=== PATIENT | female | born 1940 | race Caucasian/White ===

== ENCOUNTER 2017-02-05 13:17 | Observation (INO) | payer MEDICARE, BC ==
--- NOTE | 2017-02-05 16:04 | EDM.PDOC ---
ED HPI GENERAL MEDICAL PROBLEM - General Chief Complaint: Abdominal Pain Stated Complaint: PAIN UNDER RT RIB CAGE Time Seen by Provider: 02/05/17 14:30 Source of Information: Reports: Patient, Family () - History of Present Illness INITIAL COMMENTS - FREE TEXT/NARRATIVE: Taylor is a pleasant 76yo female who presents to ED ambulatory with her for complaints of RUQ abdominal pain "up under my rib" for around 2 weeks, worsening. Pain is worse with lying flat and wakes her up at night. She has not slept well now for the past 4-5 days. She denies F/C/S, being SOB, no cough, wheezing. She denies complaints of GERD/heartburn, n/v/d, moves her bowels regularly twice daily without changes in her stool. She has had cholecystectomy , appendectomy and hysterectomy with oopherectomty. She later reports that around one week ago she coughed up what she thought was blood tinged sputum but her sinuses have also felt dry. She had air travel to [place] a few weeks ago "but it was only a 45 minute flight". No swelling to LE. No personal or family hx of VTE. She is active, ambulatory and exercises, walks 2 miles per day; no increased pain, SOB, RUQ pain with ambulation recently. PMH significant for RA on MTX x 10+ years. Onset: Gradual Duration: Week(s): (1-2) Location: Reports: Abdomen (RUQ "under ribs") Quality: Reports: Sharp (with movements), Other (pressure when she lays flat in bed and + CVAT when patted her back to right flank last night.) Right Upper Abdomen Pain Score (Numeric/FACES): 0 - Related Data Allergies Allergy/AdvReac Type Severity Reaction Status Date / Time adhesive Allergy Rash Verified 02/05/17 18:28 cortisone Allergy Rash Verified 02/05/17 18:28 fluconazole [From Diflucan] Allergy Rash Verified 02/05/17 18:28 acetaminophen [From Tylenol] AdvReac Liver Verified 02/05/17 18:28 Problems Home Meds: Home Meds Estradiol [Estrace 0.01% Vaginal Crm] 1 dose VAG ASDIRECTED 04/22/14 [History] Fluticasone Propionate [Flonase] 1 sprays LEÓN DAILY 03/03/15 [History] Methotrexate 25 mg PO WEEKLY 04/22/14 [History] Pravastatin [Pravachol] 10 mg PO BEDTIME 04/22/14 [History] Aspirin [Halfprin] 81 mg PO DAILY 02/05/17 [History] Calcium Carb & Citrate/Vit D3 [Calcium + D3 ER Tablet] 1 tab PO BID 02/05/17 [ History] Metradinadole 1 applic TOP BID 02/05/17 [History] Multivitamin [Multivitamins] 1 cap PO DAILY 02/05/17 [History] Past Medical History HEENT History: Reports: Other (See Below) Other HEENT History: seasonal allergies Cardiovascular History: Reports: High Cholesterol, CA, Syncope Other Cardiovascular History: Ekg showed CA and pt was unaware Musculoskeletal History: Reports: Osteoporosis - Infectious Disease History Infectious Disease History: Reports: Chicken Pox, Shingles - Past Surgical History HEENT Surgical History: Reports: Adenoidectomy, Tonsillectomy Female Surgical History: Reports: Hysterectomy Musculoskeletal Surgical History: Reports: Other (See Below) Other Musculoskeletal Surgeries/Procedures:: L3-4-5 back fusion Social & Family History - Tobacco Use Smoking Status *Q: Never Smoker Second Hand Smoke Exposure: No - Caffeine Use Caffeine Use: Reports: Coffee, Tea - Alcohol Use Days Per Week of Alcohol Use: 0 Number of Drinks Per Day: 0 Total Drinks Per Week: 0 - Recreational Drug Use Recreational Drug Use: No Drug Use in Last 12 Months: No ED ROS GENERAL - Review of Systems Review Of Systems: See Below Constitutional: Reports: No Symptoms. Denies: Fever, Chills, Weakness HEENT: Reports: No Symptoms Respiratory: Reports: Cough, Hemoptysis (? of hemoptysis 1-2 weeks ago on one occasion) Cardiovascular: Reports: No Symptoms. Denies: Chest Pain, Dyspnea on Exertion, Lightheadedness, Orthopnea, Palpitations GI/Abdominal: Reports: Abdominal Pain (RUQ abdominal pain "pain under my rib"). Denies: Black Stool, Bloody Stool, Constipation, Diarrhea, Decreased Appetite , Hematochezia, Melena, Nausea : Reports: No Symptoms Musculoskeletal: Reports: Other (Hx of RA) Neurological: Reports: No Symptoms Hematologic/Lymphatic: Reports: No Symptoms, Other (last labs for RA/MTX monitoring were normal in October) ED EXAM, GI/ABD - Physical Exam Exam: See Below Exam Limited By: No Limitations General Appearance: Alert, WD/WN, No Apparent Distress Eyes: Bilateral: EOMI Ears: Normal External Exam, Hearing Grossly Normal Nose: Normal Inspection Throat/Mouth: Normal Inspection, Normal Lips, Normal Teeth, Normal Voice, No Airway Compromise Head: Atraumatic, Normocephalic Neck: Normal Inspection, Supple Respiratory/Chest: No Respiratory Distress, Lungs Clear, Normal Breath Sounds Cardiovascular: Normal Peripheral Pulses, Regular Rate, Rhythm, No Edema, No Murmur GI/Abdominal Exam: Normal Bowel Sounds, Soft, Non-Tender, No Organomegaly, Other (no pain with palp of RUQ or under rt rib cage). No: Guarding, Rigid, Rebound (Female) Exam: Deferred Rectal (Female) Exam: Deferred Back Exam: Normal Inspection, CVA Tenderness (R) (definite CVAT to right flank) . No: CVA Tenderness (L) Extremities: Normal Inspection, Non-Tender, No Pedal Edema, Normal Capillary Refill Neurological: Alert, Oriented, Normal Cognition, No Motor/Sensory Deficits Psychiatric: Normal Affect, Normal Mood Skin Exam: Warm, Dry, Intact Course - Vital Signs Last Recorded V/S: Last Vital Signs Temp 97.6 F 02/05/17 13:51 Pulse 77 02/05/17 13:51 Resp 15 02/05/17 13:51 BP 134/70 02/05/17 13:51 Pulse Ox 98 02/05/17 13:51 - Orders/Labs/Meds Orders: Active Orders 24 hr Category Date Time Status Sodium Chloride 0.9% [Normal Saline] 100 ml Med 02/05/17 16:45 Active IV ASDIRECTED Sodium Chloride 0.9% [Saline Flush] Med 02/05/17 16:43 Active 10 ml FLUSH ONETIME PRN Medication Orders Sodium Chloride (Normal Saline) 100 mls @ 65 mls/hr IV ASDIRECTED BRAULIO Last Admin: 02/05/17 17:35 Dose: 65 mls/hr Sodium Chloride (Saline Flush) 10 ml FLUSH ONETIME PRN PRN Reason: IV FLUSH Last Admin: 02/05/17 17:35 Dose: 10 ml Labs: Laboratory Tests 02/05/17 02/05/17 02/05/17 Range/Units 15:03 15:30 15:30 WBC 8.40 (3.98-10.04) K/mm3 RBC 4.38 (3.98-5.22) M/mm3 Hgb 13.9 (11.2-15.7) gm/L Hct 40.9 (34.1-44.9) % MCV 93.4 (79.4-94.8) fl MCH 31.7 (25.6-32.2) pg MCHC 34.0 (32.2-35.5) g/dl RDW Std Deviation 44.1 (36.4-46.3) fL Plt Count 208 (182-369) K/mm3 MPV 10.8 (9.4-12.3) fl Neut % (Auto) 65.8 (34.0-71.1) % Lymph % (Auto) 23.5 (19.3-51.7) % Smith % (Auto) 9.4 (4.7-12.5) % Eos % (Auto) 0.8 (0.7-5.8) Baso % (Auto) 0.5 (0.1-1.2) % Neut # (Auto) 5.53 (1.56-6.13) K/mm3 Lymph # (Auto) 1.97 (1.18-3.74) K/mm3 Smith # (Auto) 0.79 H (0.24-0.36) K/mm3 Eos # (Auto) 0.07 (0.04-0.36) K/mm3 Baso # (Auto) 0.04 (0.01-0.08) K/mm3 D-Dimer, Quantitative 2.67 H (0.19-0.59) mg/L Sodium (136-145) mEq/L Potassium (3.5-5.1) mEq/L Chloride (98-107) mEq/L Carbon Dioxide (21-32) mEq/L Anion Gap (5-15) BUN (7-18) mg/dL Creatinine (0.55-1.02) mg/dL Est Cr Clr Drug Dosing mL/min Estimated GFR (MDRD) (>60) mL/min BUN/Creatinine Ratio (14-18) Glucose (83-115) mg/dL Calcium (8.5-10.1) mg/dL Total Bilirubin (0.2-1.0) mg/dL AST (15-37) U/L ALT (14-59) U/L Alkaline Phosphatase (46-116) U/L Total Protein (6.4-8.2) g/dl Albumin (3.4-5.0) g/dl Globulin gm/dL Albumin/Globulin Ratio (1-2) Lipase (73-393) U/L Urine Color Light yellow (Yellow) Urine Appearance Clear (Clear) Urine pH 6.5 (5.0-8.0) Ur Specific [place] 1.015 (1.005-1.030) Urine Protein Negative (Negative) Urine Glucose (UA) Negative (Negative) Urine Ketones Negative (Negative) Urine Occult Blood Negative (Negative) Urine Nitrite Negative (Negative) Urine Bilirubin Negative (Negative) Urine Urobilinogen 0.2 (0.2-1.0) Ur Leukocyte Esterase Negative (Negative) Urine RBC Not seen (0-5) /hpf Urine WBC 0-5 (0-5) /hpf Ur Epithelial Cells 0-5 (0-5) /hpf Urine Bacteria Few (FEW) /hpf Urine Mucus Not seen (FEW) /hpf 02/05/17 Range/Units 15:30 WBC (3.98-10.04) K/mm3 RBC (3.98-5.22) M/mm3 Hgb (11.2-15.7) gm/L Hct (34.1-44.9) % MCV (79.4-94.8) fl MCH (25.6-32.2) pg MCHC (32.2-35.5) g/dl RDW Std Deviation (36.4-46.3) fL Plt Count (182-369) K/mm3 MPV (9.4-12.3) fl Neut % (Auto) (34.0-71.1) % Lymph % (Auto) (19.3-51.7) % Smith % (Auto) (4.7-12.5) % Eos % (Auto) (0.7-5.8) Baso % (Auto) (0.1-1.2) % Neut # (Auto) (1.56-6.13) K/mm3 Lymph # (Auto) (1.18-3.74) K/mm3 Smith # (Auto) (0.24-0.36) K/mm3 Eos # (Auto) (0.04-0.36) K/mm3 Baso # (Auto) (0.01-0.08) K/mm3 D-Dimer, Quantitative (0.19-0.59) mg/L Sodium 141 (136-145) mEq/L Potassium 3.8 (3.5-5.1) mEq/L Chloride 106 (98-107) mEq/L Carbon Dioxide 26 (21-32) mEq/L Anion Gap 12.8 (5-15) BUN 10 (7-18) mg/dL Creatinine 0.6 (0.55-1.02) mg/dL Est Cr Clr Drug Dosing 79.52 mL/min Estimated GFR (MDRD) > 60 (>60) mL/min BUN/Creatinine Ratio 16.7 (14-18) Glucose 108 (83-115) mg/dL Calcium 8.9 (8.5-10.1) mg/dL Total Bilirubin 1.0 (0.2-1.0) mg/dL AST 21 (15-37) U/L ALT 20 (14-59) U/L Alkaline Phosphatase 53 (46-116) U/L Total Protein 6.7 (6.4-8.2) g/dl Albumin 3.4 (3.4-5.0) g/dl Globulin 3.3 gm/dL Albumin/Globulin Ratio 1.0 (1-2) Lipase 240 (73-393) U/L Urine Color (Yellow) Urine Appearance (Clear) Urine pH (5.0-8.0) Ur Specific [place] (1.005-1.030) Urine Protein (Negative) Urine Glucose (UA) (Negative) Urine Ketones (Negative) Urine Occult Blood (Negative) Urine Nitrite (Negative) Urine Bilirubin (Negative) Urine Urobilinogen (0.2-1.0) Ur Leukocyte Esterase (Negative) Urine RBC (0-5) /hpf Urine WBC (0-5) /hpf Ur Epithelial Cells (0-5) /hpf Urine Bacteria (FEW) /hpf Urine Mucus (FEW) /hpf Meds: Medications Generic Name Dose Route Start Last Admin Trade Name Freq PRN Reason Stop Dose Admin Sodium Chloride 100 mls @ 65 mls/hr 02/05/17 16:45 02/05/17 17:35 Normal Saline IV 65 mls/hr ASDIRECTED BRAULIO Administration Sodium Chloride 10 ml 02/05/17 16:43 02/05/17 17:35 Saline Flush FLUSH 10 ml ONETIME PRN Administration IV FLUSH Discontinued Medications Generic Name Dose Route Start Last Admin Trade Name Donq PRN Reason Stop Dose Admin Diatrizoate Meglum/Diatrizoate Sod 90 ml 02/05/17 16:43 02/05/17 17:35 Gastrografin 37% PO 02/05/17 16:44 90 ml ONETIME ONE Administration Enoxaparin Sodium 60 mg 02/05/17 19:01 02/05/17 19:11 Lovenox SUBCUT 02/05/17 19:02 60 mg ONETIME ONE Administration Iopamidol 100 ml 02/05/17 16:43 02/05/17 17:35 Isovue-370 (76%) IVPUSH 02/05/17 16:44 100 ml ONETIME ONE Administration - Radiology Interpretation Free Text/Narrative:: Labs with normal CBC, CMP. D-dimer is elevated at 2.63 CTA of chest is obtained with elevation of d.dimer showing rt sided pulmonoary emboli--see reports CT of abd/pelvis with contrast is unremarkable for acute findings. Case reviewed with Dr. Banegas; recommends admission despite hemodynamic stability. Call placed to Dr. García who agrees to accept patient to Observation status. Lovenox 60mg given for anticoagulation. Reviewed all above findings and recommendations with patient and who agree to admission to observation as above. Departure - Departure Time of Disposition: 20:00 Disposition: Admitted As Inpatient 68 Condition: Good Clinical Impression: Pulmonary embolism on right - Discharge Information Referrals: Chanel Ryan PA [Primary Care Provider] - Forms: ED Department Discharge - My Orders Last 24 Hours: My Active Orders 02/05/17 16:43 Sodium Chloride 0.9% [Saline Flush] 10 ml FLUSH ONETIME PRN 02/05/17 16:45 Sodium Chloride 0.9% [Normal Saline] 100 ml IV ASDIRECTED - Assessment/Plan Last 24 Hours: My Active Orders 02/05/17 16:43 Sodium Chloride 0.9% [Saline Flush] 10 ml FLUSH ONETIME PRN 02/05/17 16:45 Sodium Chloride 0.9% [Normal Saline] 100 ml IV ASDIRECTED
[2017-02-05] MEDS ORDERED: Sodium Chloride 0.9% 10 ML Syringe FLUSH PRN (16:43)
[2017-02-05] MEDS ORDERED: Iopamidol 755 Mg/ML 100 ML Bottle IVPUSH ONE (16:43)
[2017-02-05] MEDS ORDERED: Diatrizoate Meglumine/Diatrizoate Sodium 37% 120 ML Bottle PO ONE (16:43)
[2017-02-05] MEDS ORDERED: Sodium Chloride 0.9% 100 ML IV SCH (16:45)
--- NOTE | 2017-02-05 18:05 | CT ---
CT chest Technique: Multiple axial sections through the chest were obtained. Intravenous contrast was utilized. Study has been performed as a pulmonary angiogram protocol. Findings: Pulmonary emboli are seen within the right lower lobe segmental and subsegmental branches. Smaller pulmonary emboli are seen within a segmental branch within the right upper lung. No other pulmonary emboli are appreciated. No evidence of right ventricular strain. Mediastinum and hilar regions show no adenopathy or mass. No pericardial thickening is seen. Small right sided pleural effusion is seen. Subpleural nodular density is within the right middle lobe measuring 2.1 cm. Slight dependent atelectasis is seen posteriorly within both lung bases. Bone window settings appear within normal limits for the patient's age. Impression: 1. Pulmonary emboli within the right lower lobe as well as small pulmonary emboli within the right upper lung. 2. Small right sided pleural effusion. 3. Subpleural nodular density within right middle lobe measuring 2.1 cm. Recommend follow-up noncontrast chest CT in 6 months to further evaluate this nodule. This follow-up study would occur in July,. Diagnostic code #5 and #9
--- NOTE | 2017-02-05 18:17 | CT ---
CT abdomen and pelvis Technique: Subpleural nodular density again seen within the right middle lobe. Small right basilar pleural effusion is seen. Liver shows no focal parenchymal abnormality. Surgical clips are seen from prior cholecystectomy. Spleen appears within normal limits. Adrenal glands show no nodule. Kidneys show symmetric contrast enhancement without hydronephrosis or mass. Small scar is noted within the left kidney. Pancreas shows no discrete abnormality. Surgical clips are seen from prior cholecystectomy. Aorta shows no aneurysmal dilatation with atherosclerotic calcification. Calcified injection granulomas are noted within both buttocks. No pelvic mass or adenopathy is seen. No free fluid is identified. Delayed images shows contrast within the distal ureters and within the bladder. Appendix not visualized with certainty. Bone window settings were reviewed which shows previous lumbar spine surgery. Impression: 1. Incidental findings as noted above. Nothing acute is appreciated on CT study of the abdomen and pelvis. Diagnostic code #2
[2017-02-05] MEDS ORDERED: Enoxaparin 60 MG/0.6 ML Syringe SUBCUT ONE (19:01)
--- NOTE | 2017-02-05 19:50 | PCM.HP ---
H&P History of Present Illness - General Date of Service: 02/05/17 Admit Problem/Dx: PE Source of Information: Patient, Old Records, Provider, RN Notes Reviewed History Limitations: Reports: No Limitations - History of Present Illness Initial Comments - Free Text/Narative: This is a 76 yo elderly white female who looks younger than her stated age with past medical hx/o vaginal dryness, seasonal allergic rhinitis, hyperlipidemia, history of NV, and osteoporosis who presents to the emergency department with complains of worsening right upper quadrant abdominal pain under her rib that started 2 weeks ago. Her pain is aggravated with laying flat and wakes her up at night. She denies any associated symptoms. She reports no recent surgery or prolonged travel. She has a very active lifestyle with routine exercise. She denies any history of blood clot. He is not an active smoker. No history of malignancy. She is not bed-bound and denies any family history of hypercoagulable state. Patient carries a history of rheumatoid arthritis on methotrexate for over 10 years now. Her initial workup in the emergency department shows an unremarkable CBC and chemistry. Her UA is negative for UTI. Her d-dimer is elevated at 2.67. Abdominal/pelvic CT scan report reads no acute issues appreciated. Her pulmonary angiogram report reads pulmonary emboli within the right lower lobe as well as small pulmonary emboli within the right upper lung. Small right- sided pleural effusion. Subpleural nodular density within the right middle lobe measuring 2.1 cm. Patient is being admitted for medical management and all pulmonary embolism that is likely unprovoked in nature. She is full code. Right Upper Abdomen Pain Score (Numeric/FACES): 0 - Related Data Allergies/Adverse Reactions: Allergies Allergy/AdvReac Type Severity Reaction Status Date / Time adhesive Allergy Rash Verified 02/05/17 18:28 cortisone Allergy Rash Verified 02/05/17 18:28 fluconazole [From Diflucan] Allergy Rash Verified 02/05/17 18:28 acetaminophen [From Tylenol] AdvReac Liver Verified 02/05/17 18:28 Problems Home Medications: Home Meds Estradiol [Estrace 0.01% Vaginal Crm] 1 dose VAG ASDIRECTED 04/22/14 [History] Fluticasone Propionate [Flonase] 1 sprays LEÓN DAILY 04/22/14 [History] Methotrexate 25 mg PO WEEKLY 03/03/15 [History] Pravastatin [Pravachol] 10 mg PO BEDTIME 04/22/14 [History] Aspirin [Halfprin] 81 mg PO DAILY 02/05/17 [History] Calcium Carb & Citrate/Vit D3 [Calcium + D3 ER Tablet] 1 tab PO BID 02/05/17 [ History] Metradinadole 1 applic TOP BID 02/05/17 [History] Multivitamin [Multivitamins] 1 cap PO DAILY 02/05/17 [History] Past Medical History HEENT History: Reports: Other (See Below) Other HEENT History: seasonal allergies Cardiovascular History: Reports: High Cholesterol, NV, Syncope Other Cardiovascular History: Ekg showed NV and pt was unaware Musculoskeletal History: Reports: Osteoporosis - Infectious Disease History Infectious Disease History: Reports: Chicken Pox, Shingles - Past Surgical History HEENT Surgical History: Reports: Adenoidectomy, Tonsillectomy Female Surgical History: Reports: Hysterectomy Musculoskeletal Surgical History: Reports: Other (See Below) Other Musculoskeletal Surgeries/Procedures:: L3-4-5 back fusion Social & Family History - Tobacco Use Smoking Status *Q: Never Smoker Second Hand Smoke Exposure: No - Caffeine Use Caffeine Use: Reports: Coffee, Tea - Alcohol Use Days Per Week of Alcohol Use: 0 Number of Drinks Per Day: 0 Total Drinks Per Week: 0 - Recreational Drug Use Recreational Drug Use: No Drug Use in Last 12 Months: No H&P Review of Systems - Review of Systems: Review Of Systems: See Below General: Denies: Fever, Chills, Malaise, Weakness, Fatigue HEENT: Reports: No Symptoms Pulmonary: Reports: Cough, Hemoptysis. Denies: Shortness of Breath Gastrointestinal: Reports: Abdominal Pain. Denies: Nausea, Vomiting Genitourinary: Reports: No Symptoms Musculoskeletal: Reports: No Symptoms Skin: Denies: Cyanosis, Bruising, Rash, Erythema Psychiatric: Reports: No Symptoms Neurological: Denies: Confusion, Difficulty Walking, Gait Disturbance Hematologic/Lymphatic: Reports: No Symptoms. Denies: Easy Bleeding, Easy Bruising Immunologic: Reports: No Symptoms, Anaphylaxis Exam - Exam Exam: See Below - Vital Signs Vital Signs: Last Vital Signs Temp 36.4 C 02/05/17 13:51 Pulse 77 02/05/17 13:51 Resp 15 02/05/17 13:51 BP 134/70 02/05/17 13:51 Pulse Ox 98 02/05/17 13:51 Weight: 61.235 kg - Exam General: Alert, Oriented, Cooperative, Mild Distress HEENT: Conjunctiva Clear, EOMI, Hearing Intact, Mucosa Moist & Dunn, Normal Nasal Septum, Posterior Pharynx Clear, Pupils Equal, Pupils Reactive, TMs Clear Neck: Supple, Trachea Midline Lungs: Clear to Auscultation, Normal Respiratory Effort Cardiovascular: Regular Rate, Regular Rhythm GI/Abdominal Exam: Normal Bowel Sounds, Soft, Non-Tender, No Organomegaly, No Distention, No Abnormal Bruit, No Mass (Female) Exam: Deferred Rectal (Female) Exam: Deferred Back Exam: Normal Inspection, Decreased Range of Motion Extremities: Normal Inspection, Normal Range of Motion, Non-Tender, No Pedal Edema, Normal Capillary Refill Peripheral Pulses: 2+: Posterior Tibial (L), Posterior Tibial (R), Dorsalis Pedis (L), Dorsalis Pedis (R) Skin: Warm, Dry, Intact Neuro Extensive - Mental Status: Oriented x3, Normal Cognition, Memory Intact Neuro Extensive - Motor, Sensory, Reflexes: CN II-XII Intact, Normal Gait Psychiatric: Alert, Normal Affect, Normal Mood - Patient Data Lab Results Last 24 hrs: Laboratory Results - last 24 hr 02/05/17 02/05/17 02/05/17 Range/Units 15:03 15:30 15:30 WBC 8.40 (3.98-10.04) K/mm3 RBC 4.38 (3.98-5.22) M/mm3 Hgb 13.9 (11.2-15.7) gm/L Hct 40.9 (34.1-44.9) % MCV 93.4 (79.4-94.8) fl MCH 31.7 (25.6-32.2) pg MCHC 34.0 (32.2-35.5) g/dl RDW Std Deviation 44.1 (36.4-46.3) fL Plt Count 208 (182-369) K/mm3 MPV 10.8 (9.4-12.3) fl Neut % (Auto) 65.8 (34.0-71.1) % Lymph % (Auto) 23.5 (19.3-51.7) % Lyman % (Auto) 9.4 (4.7-12.5) % Eos % (Auto) 0.8 (0.7-5.8) Baso % (Auto) 0.5 (0.1-1.2) % Neut # (Auto) 5.53 (1.56-6.13) K/mm3 Lymph # (Auto) 1.97 (1.18-3.74) K/mm3 Lyman # (Auto) 0.79 H (0.24-0.36) K/mm3 Eos # (Auto) 0.07 (0.04-0.36) K/mm3 Baso # (Auto) 0.04 (0.01-0.08) K/mm3 D-Dimer, Quantitative 2.67 H (0.19-0.59) mg/L Sodium (136-145) mEq/L Potassium (3.5-5.1) mEq/L Chloride (98-107) mEq/L Carbon Dioxide (21-32) mEq/L Anion Gap (5-15) BUN (7-18) mg/dL Creatinine (0.55-1.02) mg/dL Est Cr Clr Drug Dosing mL/min Estimated GFR (MDRD) (>60) mL/min BUN/Creatinine Ratio (14-18) Glucose (83-115) mg/dL Calcium (8.5-10.1) mg/dL Total Bilirubin (0.2-1.0) mg/dL AST (15-37) U/L ALT (14-59) U/L Alkaline Phosphatase (46-116) U/L Total Protein (6.4-8.2) g/dl Albumin (3.4-5.0) g/dl Globulin gm/dL Albumin/Globulin Ratio (1-2) Lipase (73-393) U/L Urine Color Light yellow (Yellow) Urine Appearance Clear (Clear) Urine pH 6.5 (5.0-8.0) Ur Specific Ald[place] 1.015 (1.005-1.030) Urine Protein Negative (Negative) Urine Glucose (UA) Negative (Negative) Urine Ketones Negative (Negative) Urine Occult Blood Negative (Negative) Urine Nitrite Negative (Negative) Urine Bilirubin Negative (Negative) Urine Urobilinogen 0.2 (0.2-1.0) Ur Leukocyte Esterase Negative (Negative) Urine RBC Not seen (0-5) /hpf Urine WBC 0-5 (0-5) /hpf Ur Epithelial Cells 0-5 (0-5) /hpf Urine Bacteria Few (FEW) /hpf Urine Mucus Not seen (FEW) /hpf 02/05/17 Range/Units 15:30 WBC (3.98-10.04) K/mm3 RBC (3.98-5.22) M/mm3 Hgb (11.2-15.7) gm/L Hct (34.1-44.9) % MCV (79.4-94.8) fl MCH (25.6-32.2) pg MCHC (32.2-35.5) g/dl RDW Std Deviation (36.4-46.3) fL Plt Count (182-369) K/mm3 MPV (9.4-12.3) fl Neut % (Auto) (34.0-71.1) % Lymph % (Auto) (19.3-51.7) % Lyman % (Auto) (4.7-12.5) % Eos % (Auto) (0.7-5.8) Baso % (Auto) (0.1-1.2) % Neut # (Auto) (1.56-6.13) K/mm3 Lymph # (Auto) (1.18-3.74) K/mm3 Lyman # (Auto) (0.24-0.36) K/mm3 Eos # (Auto) (0.04-0.36) K/mm3 Baso # (Auto) (0.01-0.08) K/mm3 D-Dimer, Quantitative (0.19-0.59) mg/L Sodium 141 (136-145) mEq/L Potassium 3.8 (3.5-5.1) mEq/L Chloride 106 (98-107) mEq/L Carbon Dioxide 26 (21-32) mEq/L Anion Gap 12.8 (5-15) BUN 10 (7-18) mg/dL Creatinine 0.6 (0.55-1.02) mg/dL Est Cr Clr Drug Dosing 79.52 mL/min Estimated GFR (MDRD) > 60 (>60) mL/min BUN/Creatinine Ratio 16.7 (14-18) Glucose 108 (83-115) mg/dL Calcium 8.9 (8.5-10.1) mg/dL Total Bilirubin 1.0 (0.2-1.0) mg/dL AST 21 (15-37) U/L ALT 20 (14-59) U/L Alkaline Phosphatase 53 (46-116) U/L Total Protein 6.7 (6.4-8.2) g/dl Albumin 3.4 (3.4-5.0) g/dl Globulin 3.3 gm/dL Albumin/Globulin Ratio 1.0 (1-2) Lipase 240 (73-393) U/L Urine Color (Yellow) Urine Appearance (Clear) Urine pH (5.0-8.0) Ur Specific Alda (1.005-1.030) Urine Protein (Negative) Urine Glucose (UA) (Negative) Urine Ketones (Negative) Urine Occult Blood (Negative) Urine Nitrite (Negative) Urine Bilirubin (Negative) Urine Urobilinogen (0.2-1.0) Ur Leukocyte Esterase (Negative) Urine RBC (0-5) /hpf Urine WBC (0-5) /hpf Ur Epithelial Cells (0-5) /hpf Urine Bacteria (FEW) /hpf Urine Mucus (FEW) /hpf Result Diagrams: 02/05/17 15:30 02/05/17 15:30 *Q Meaningful Use (ADM) - VTE *Q VTE Criteria *Q: - Stroke *Q Stroke Criteria *Q: - AMI *Q AMI Criteria *Q: Problem List Initiated/Reviewed/Updated: Yes Orders Last 24hrs: Active Orders 24 hr Category Date Time Status CBC W/O DIFF,HEMOGRAM [HEME] DAILY Lab 02/05/17 19:15 Ordered Sodium Chloride 0.9% [Normal Saline] 100 ml Med 02/05/17 16:45 Active IV ASDIRECTED Sodium Chloride 0.9% [Saline Flush] Med 02/05/17 16:43 Active 10 ml FLUSH ONETIME PRN Medication Orders Sodium Chloride (Normal Saline) 100 mls @ 65 mls/hr IV ASDIRECTED BRAULIO Last Admin: 02/05/17 17:35 Dose: 65 mls/hr Sodium Chloride (Saline Flush) 10 ml FLUSH ONETIME PRN PRN Reason: IV FLUSH Last Admin: 02/05/17 17:35 Dose: 10 ml Assessment/Plan Comment:: Assessment/Plan: Acute: Pulmonary Embolism - Likely unprovoked - Risk Factor: Long Hx/o RA - No Hx/o Blood Clot, NO recent r=surgery, no prolonged travel - She is not an active smoker, NO active Malignancy, She is not obese and not bed bound - She is very active in lifestyle - Denies any family hx/o hyper-coagulable states - Already received Lovenox SubQ x1 in ED - She wants to be on DOACs instead of Warfarin - She agrees with Eliquis start at 10 mg po BID for & days then 5 mg po BID thereafter - PRN pain meds - Recommend hyper-coagulable work up after treatment Small Right Sided Effusion - 2/2 PE - Monitor - IS as directed 2.1 Centimeter Sub-pleureal Nodular Density Within RML - New finding on CT scan - Recommend follow up with Non-contrast Chest CT scan in 6 months for further eval - Defer to PCP Chronic: Vaginal Dryness NAKUL RA on MTX HLD Plan: Admit to OBS Routine AM Labs Resume Home Meds CM/SW for d/c planning Code Status:1 D/c in am if she remains stable
[2017-02-05] MEDS ORDERED: Promethazine 12.5 MG in Sodium Chloride 0.9% 50 ML IV PRN (20:23)
[2017-02-05] MEDS ORDERED: Ondansetron 4 MG/2 ML SDV IV PRN (20:23)
[2017-02-05] MEDS ORDERED: Bisacodyl 5 MG Tab PO PRN (20:23)
[2017-02-05] MEDS ORDERED: Acetaminophen 325 MG Tab PO PRN ×2 (20:23→21:34)
[2017-02-05] MEDS ORDERED: Polyethylene Glycol 3350 Powder 17 GM Packet PO PRN (20:23)
[2017-02-05] MEDS ORDERED: HYDROmorphone 0.5 MG/0.5 ML Syringe IVPUSH PRN (20:23)
[2017-02-05] MEDS ORDERED: LORazepam 2 MG/ML MDV IV PRN (20:23)
[2017-02-05] MEDS ORDERED: Temazepam 7.5 MG Cap PO PRN (20:23)
[2017-02-05] MEDS ORDERED: Docusate Sodium 100 MG Cap PO PRN (20:23)
[2017-02-05] MEDS ORDERED: Acetaminophen/HYDROcodone 325-5 MG Tab PO PRN ×2 (20:23→21:34)
[2017-02-05] MEDS ORDERED: Albuterol/Ipratropium 3.0-0.5 MG/3 ML Neb Soln NEB PRN (20:23)
[2017-02-05] MEDS ORDERED: Metoprolol Tartrate 5 MG/5 ML SDV IVPUSH PRN (20:29)
[2017-02-05] MEDS ORDERED: hydrALAZINE 20 MG/ML SDV IVPUSH PRN (20:29)
[2017-02-05] MEDS ORDERED: ESTRADIOL VAG SCH (20:30)
[2017-02-05] MEDS ORDERED: METHOTREXATE 25 MG PO SCH (20:30)
[2017-02-05] MEDS ORDERED: PRAVASTATIN 10 MG PO SCH ×2 (21:00)
[2017-02-05] MEDS ORDERED: [UNRECOGNIZED DRUG - OTHER] TOP SCH (21:00)
[2017-02-05] MEDS ORDERED: ESTRADIOL VAGINAL VAG SCH (21:00)
[2017-02-05] MEDS ORDERED: oxyCODONE 5 MG Tab PO PRN (23:20)
[2017-02-06] MEDS ORDERED: Apixaban 5 MG Tab PO SCH ×2 (07:00→09:00)
[2017-02-06] MEDS: METRONIDAZOLE TOP SCH ×2 (07:55→08:55)
--- NOTE | 2017-02-06 08:33 | PCM.DCSUM1 ---
Discharge Summary - Discharge Data Discharge Disposition: Home, Self-Care 01 Condition: Good - Discharge Plan Home Medications: Home Meds Estradiol [Estrace 0.01% Vaginal Crm] 1 dose VAG ASDIRECTED 04/22/14 [History] Fluticasone Propionate [Flonase] 1 sprays LEÓN DAILY 04/22/14 [History] Methotrexate 25 mg PO WEEKLY 04/22/14 [History] Pravastatin [Pravachol] 10 mg PO BEDTIME 04/22/14 [History] Aspirin [Halfprin] 81 mg PO DAILY 02/05/17 [History] Calcium Carb & Citrate/Vit D3 [Calcium + D3 ER Tablet] 1 tab PO BID 02/05/17 [ History] Metradinadole 1 applic TOP BID 02/05/17 [History] Multivitamin [Multivitamins] 1 cap PO DAILY 02/05/17 [History] Patient Handouts: Pulmonary Embolism, Apixaban oral tablets Forms: ED Department Discharge Referrals: Connor,GRAY Mccoy [Primary Care Provider] - (Follow-up with primary doctor for blood-thinner options if Eliquis is unaffordable.) - Patient Data Vitals - Most Recent: Last Vital Signs Temp 97.7 F 02/06/17 07:44 Pulse 77 02/06/17 07:44 Resp 18 02/06/17 07:44 BP 110/60 02/06/17 07:44 Pulse Ox 92 L 02/06/17 07:44 Weight - Most Recent: 135 lb 12.8 oz I&O - Last 24 hours: Intake & Output 02/05/17 02/06/17 02/06/17 22:59 06:59 14:59 Intake Total 800 Balance 800 Med Orders - Current: Current Medications Albuterol/Ipratropium (Duoneb 3.0-0.5 Mg/3 Ml) 3 ml NEB Q4H PRN PRN Reason: Shortness Of Breath/wheezing Apixaban (Eliquis) 10 mg PO BID BRAULIO Stop: 02/12/17 21:01 Apixaban (Eliquis) 5 mg PO BID BRAULIO Aspirin (Halfprin) 81 mg PO DAILY BRAULIO Bisacodyl (Dulcolax) 5 mg PO DAILY PRN PRN Reason: Constipation Docusate Sodium (Colace) 100 mg PO BID PRN PRN Reason: Constipation Flunisolide (Nasalide Nasal [place]) 0 ml LEÓN BID [facility] Hydralazine HCl (Apresoline) 20 mg IVPUSH Q4H PRN PRN Reason: Hypertension Hydromorphone HCl (Dilaudid) 0.25 mg IVPUSH Q2H PRN PRN Reason: Pain (severe 7-10) Last Admin: 02/05/17 22:55 Dose: 0.25 mg Promethazine HCl 12.5 mg/ (Sodium Chloride) 50.5 mls @ 100 mls/hr IV Q6H PRN PRN Reason: Nausea/Vomiting Lorazepam (Ativan) 1 mg IV Q6H PRN PRN Reason: Anxiety Magnesium Sulfate (Pharmacy To Dose - Magnesium Replacement) 1 dose .XX ASDIRECTED [facility] Metoprolol Tartrate (Lopressor) 5 mg IVPUSH Q4H PRN PRN Reason: Tachycardia Multivitamins (Thera) 1 each PO DAILY [facility] Non-Formulary Medication (Methotrexate [Methotrexate]) 25 mg PO WEEKLY [facility] Ondansetron HCl (Zofran) 4 mg IV Q6H PRN PRN Reason: Nausea/Vomiting Oxycodone HCl (Oxycodone) 5 mg PO Q4H PRN PRN Reason: Pain Last Admin: 02/06/17 03:41 Dose: 5 mg Ptom - Calcium Carb & Citrate W/Vitamin D 1 each PO BID [facility] Ptom - Estradiol (Vaginal Cream) 0 each VAG ASDIRECTED [facility] Ptom - Metronidazole (Topical) 0 each TOP BID [facility] Last Admin: 02/06/17 07:55 Dose: Not Given Pravastatin 10mg Tab (Own Med) 0 each PO BEDTIME BRAULIO Last Admin: 02/05/17 22:48 Dose: 1 each Polyethylene Glycol (Miralax) 17 gm PO DAILY PRN PRN Reason: Constipation Potassium Chloride (Pharmacy To Dose - Potassium Replacement) 1 dose .XX ASDIRECTED [facility] Senna/Docusate Sodium (Senna Plus) 1 tab PO BID PRN PRN Reason: Constipation Sodium Chloride (Saline Flush) 10 ml FLUSH ONETIME PRN PRN Reason: IV FLUSH Last Admin: 02/05/17 17:35 Dose: 10 ml Temazepam (Restoril) 7.5 mg PO BEDTIME PRN PRN Reason: Sleep Discontinued Medications Acetaminophen (Tylenol) 650 mg PO Q4H PRN PRN Reason: Pain (Mild 1-3)/fever Acetaminophen (Tylenol) 650 mg PO Q4H PRN PRN Reason: Pain (Mild 1-3)/fever Hydrocodone Bitart/Acetaminophen ([place] 325-5 Mg) 1 tab PO Q4H PRN PRN Reason: Pain (moderate 4-6) Hydrocodone Bitart/Acetaminophen ([place] 325-5 Mg) 1 tab PO Q4H PRN PRN Reason: Pain (moderate 4-6) Apixaban (Eliquis) 5 mg PO BID BRAULIO Diatrizoate Meglum/Diatrizoate Sod (Gastrografin 37%) 90 ml PO ONETIME ONE Stop: 02/05/17 16:44 Last Admin: 02/05/17 17:35 Dose: 90 ml Enoxaparin Sodium (Lovenox) 60 mg SUBCUT ONETIME ONE Stop: 02/05/17 19:02 Last Admin: 02/05/17 19:11 Dose: 60 mg Sodium Chloride (Normal Saline) 100 mls @ 65 mls/hr IV ASDIRECTED BRAULIO Last Admin: 02/05/17 17:35 Dose: 65 mls/hr Iopamidol (Isovue-370 (76%)) 100 ml IVPUSH ONETIME ONE Stop: 02/05/17 16:44 Last Admin: 02/05/17 17:35 Dose: 100 ml Magnesium Sulfate (Pharmacy To Dose - Magnesium Replacement) 1 dose .XX ASDIRECTED B[facility]ULIO Non-Formulary Medication (Aspirin [Halfprin]) 81 mg PO DAILY [facility] Non-Formulary Medication (Calcium Carb & Citrate/Vit D3 [Calcium + D3 Er Tablet] ) 1 tab PO BID [facility] Non-Formulary Medication (Estradiol) 1 dose VAG ASDIRECTED [facility] Non-Formulary Medication (Fluticasone Propionate) 1 sprays LEÓN DAILY [facility] Non-Formulary Medication (Metradinadole) 1 applic TOP BID [facility] Non-Formulary Medication (Multivitamin [Multivitamins]) 1 cap PO DAILY [facility] Non-Formulary Medication (Pravastatin [Pravachol]) 10 mg PO BEDTIME [facility]RAUL[facility] Potassium Chloride (Pharmacy To Dose - Potassium Replacement) 1 dose .XX ASDIRECTED BRAULIO *Q Meaningful Use (DIS) - VTE *Q VTE Criteria *Q: - Stroke *Q Stroke Criteria *Q: - AMI *Q AMI Criteria *Q:
[2017-02-06] MEDS: CALCIUM CARB PO SCH ×2 (08:54→08:57)
[2017-02-06] MEDS: CITRATE PO SCH ×2 (08:54→08:57)
[2017-02-06] MEDS: VITAMIN D PO SCH ×2 (08:54→08:57)
[2017-02-06] MEDS ORDERED: Non-Formulary Medication 1 Each (Aspirin [Halfprin] 81 MG) PO SCH (09:00)
[2017-02-06] MEDS ORDERED: Non-Formulary Medication 1 Each (Multivitamin [Multivitamins] 1 CAP) PO SCH (09:00)
[2017-02-06] MEDS ORDERED: Aspirin 81 MG Tab.EC PO SCH (09:00)
[2017-02-06] MEDS ORDERED: FLUTICASONE PROPIONATE NAS SCH (09:00)
[2017-02-06] MEDS ORDERED: Multivitamins,Therapeutic Tab PO SCH (09:00)
[2017-02-06 11:57] VITALS: BP 118/65
--- NOTE | 2017-02-06 12:04 | PCM.DCSUM1 ---
Discharge Summary - Hospital Course Brief History: This is a 76 yo elderly white female who looks younger than her stated age with past medical hx/o vaginal dryness, seasonal allergic rhinitis, hyperlipidemia, history of SC, and osteoporosis who presents to the emergency department with complains of worsening right upper quadrant abdominal pain under her rib that started 2 weeks ago. She was admitted for medical management of PE. - Discharge Data Discharge Date: 02/06/17 Discharge Disposition: Home, Self-Care 01 Condition: Good - Discharge Diagnosis/Problem(s) (1) Pulmonary embolism on right SNOMED Code(s): 44817835 ICD Code: I26.99 - OTHER PULMONARY EMBOLISM WITHOUT ACUTE COR PULMONALE Status: Acute (2) Pleuritic chest pain SNOMED Code(s): 7283596 ICD Code: R07.81 - PLEURODYNIA Status: Acute - Patient Summary/Data Operative Procedure(s) Performed: None Complications: None Consults: None Labs Pending at D/C: None Recommended Follow-up Testing/Procedures: Hypercoagulable state work up after completion of treatment Planned Operative Procedure(s) after DC: None Hospital Course: Patient was primarily admitted for medical management of pulmonary embolism which we felt unprovoked in etiology. She was hemodynamically stable but she was admitted for observation. She had no obvious risk factors except for her RA. However after discussing her options for medical treatment, she elected to try NOACs with preference to Eliquis. Overnight she did well and her pleuritic pain improved. Her hospital course was uncomplicated and the rest of her chronic medical illness remained stable during this admission. Patient was stable on discharge. She was released with Eliquis for PE treatment. She was advised to come back or seek immediate care should her symptom persists or gets. She was further advised to follow up with her PCP in 1 -2 weeks. The patient expressed understanding and in agreement with the plans as discussed above. All questions were answered. - Patient Instructions Diet: Usual Diet as Tolerated Activity: As Tolerated Driving: Do Not Drive Showering/Bathing: May Shower Notify Provider of: Fever, Increased Pain, Swelling and Redness, Nausea and/or Vomiting Other/Special Instructions: - Please take all medications as directed. - Resume routine home activities w/o restrictions. - Hypercoagulable work up after completion of treatment. - Notify your PCP immediately for any bleeds or excessive bruising. - Follow up or call PCP after discharge for any questions or concerns - Discharge Plan Prescriptions/Med Rec: Apixaban [Eliquis] 5 mg PO BID #60 tablet Home Medications: Home Meds Estradiol [Estrace 0.01% Vaginal Crm] 1 dose VAG ASDIRECTED 04/22/14 [History] Fluticasone Propionate [Flonase] 1 sprays LEÓN DAILY 04/22/14 [History] Methotrexate 25 mg PO WEEKLY 04/22/14 [History] Pravastatin [Pravachol] 10 mg PO BEDTIME 04/22/14 [History] Aspirin [Halfprin] 81 mg PO DAILY 02/05/17 [History] Calcium Carb & Citrate/Vit D3 [Calcium + D3 ER Tablet] 1 tab PO BID 02/05/17 [ History] Metradinadole 1 applic TOP BID 02/05/17 [History] Multivitamin [Multivitamins] 1 cap PO DAILY 02/05/17 [History] Apixaban [Eliquis] 5 mg PO BID #60 tablet 02/06/17 [Rx] Patient Handouts: Pulmonary Embolism, Apixaban oral tablets Referrals: Zeina Lovelace MD [Ordering Only Provider] - (Please call and schedule a follow-up appointment with the blood specialist, Dr. Love at [facility] here in [place]. ) Chanel Ryan PA [Primary Care Provider] - (Please call and schedule a follow- up appointment with your new primary care doctor (of your choice) within 1 week. Follow-up with primary doctor for blood-thinner options if Eliquis is unaffordable.) - Discharge Summary/Plan Comment DC Time >30 min.: Yes (45 mins) Discharge Summary/Plan Comment: Discharge to Home - General Info Date of Service: 02/06/17 Admission Dx/Problem (Free Text: PE Subjective Update: Follow Up Functional Status: Reports: Pain Controlled, Tolerating Diet, Ambulating, Urinating. Denies: New Symptoms - Review of Systems General: Denies: Fever, Weakness, Fatigue, Malaise, Chills HEENT: Reports: No Symptoms Pulmonary: Reports: Pleuritic Chest Pain. Denies: Shortness of Breath Cardiovascular: Denies: Chest Pain, Palpitations, Dyspnea on Exertion, Edema, Lightheadedness Gastrointestinal: Denies: Abdominal Pain, Nausea, Vomiting Genitourinary: Reports: No Symptoms Musculoskeletal: Reports: No Symptoms Skin: Denies: Cyanosis, Mottled, Pallor, Diaphoresis, Bruising, Rash Neurological: Denies: Confusion, Dizziness, Syncope, Difficulty Walking, Weakness, Gait Disturbance Psychiatric: Denies: Depression, Anxiety, Hallucinations - Patient Data Vitals - Most Recent: Last Vital Signs Temp 36.3 C 02/06/17 11:44 Pulse 69 02/06/17 11:44 Resp 17 02/06/17 11:44 BP 118/65 02/06/17 11:44 Pulse Ox 100 02/06/17 11:44 Weight - Most Recent: 61.598 kg I&O - Last 24 hours: Intake & Output 02/05/17 02/06/17 02/06/17 22:59 06:59 14:59 Intake Total 800 300 Balance 800 300 Med Orders - Current: Current Medications Albuterol/Ipratropium (Duoneb 3.0-0.5 Mg/3 Ml) 3 ml NEB Q4H PRN PRN Reason: Shortness Of Breath/wheezing Apixaban (Eliquis) 10 mg PO BID [facility] Stop: 02/12/17 21:01 Last Admin: 02/06/17 08:51 Dose: 10 mg Apixaban (Eliquis) 5 mg PO BID [facility] Aspirin (Halfprin) 81 mg PO DAILY [facility] Last Admin: 02/06/17 08:54 Dose: Not Given Bisacodyl (Dulcolax) 5 mg PO DAILY PRN PRN Reason: Constipation Docusate Sodium (Colace) 100 mg PO BID PRN PRN Reason: Constipation Flunisolide (Nasalide Nasal [place]) 0 ml LEÓN BID [facility] Last Admin: 02/06/17 08:54 Dose: Not Given Hydralazine HCl (Apresoline) 20 mg IVPUSH Q4H PRN PRN Reason: Hypertension Hydromorphone HCl (Dilaudid) 0.25 mg IVPUSH Q2H PRN PRN Reason: Pain (severe 7-10) Last Admin: 02/05/17 22:55 Dose: 0.25 mg Promethazine HCl 12.5 mg/ (Sodium Chloride) 50.5 mls @ 100 mls/hr IV Q6H PRN PRN Reason: Nausea/Vomiting Lorazepam (Ativan) 1 mg IV Q6H PRN PRN Reason: Anxiety Magnesium Sulfate (Pharmacy To Dose - Magnesium Replacement) 1 dose .XX ASDIRECTED [facility] Metoprolol Tartrate (Lopressor) 5 mg IVPUSH Q4H PRN PRN Reason: Tachycardia Multivitamins (Thera) 1 each PO DAILY [facility] Last Admin: 02/06/17 08:56 Dose: Not Given Ondansetron HCl (Zofran) 4 mg IV Q6H PRN PRN Reason: Nausea/Vomiting Oxycodone HCl (Oxycodone) 5 mg PO Q4H PRN PRN Reason: Pain Last Admin: 02/06/17 03:41 Dose: 5 mg Ptom - Calcium Carb & Citrate W/Vitamin D 1 each PO BID [facility] Last Admin: 02/06/17 08:57 Dose: Not Given Ptom - Estradiol (Vaginal Cream) 0 each VAG ASDIRECTED [facility] Ptom - Metronidazole (Topical) 0 each TOP BID [facility] Last Admin: 02/06/17 08:55 Dose: Not Given Pravastatin 10mg Tab (Own Med) 0 each PO BEDTIME [facility] Last Admin: 02/05/17 22:48 Dose: 1 each Polyethylene Glycol (Miralax) 17 gm PO DAILY PRN PRN Reason: Constipation Potassium Chloride (Pharmacy To Dose - Potassium Replacement) 1 dose .XX ASDIRECTED [facility] Senna/Docusate Sodium (Senna Plus) 1 tab PO BID PRN PRN Reason: Constipation Sodium Chloride (Saline Flush) 10 ml FLUSH ONETIME PRN PRN Reason: IV FLUSH Last Admin: 02/05/17 17:35 Dose: 10 ml Temazepam (Restoril) 7.5 mg PO BEDTIME PRN PRN Reason: Sleep Discontinued Medications Acetaminophen (Tylenol) 650 mg PO Q4H PRN PRN Reason: Pain (Mild 1-3)/fever Acetaminophen (Tylenol) 650 mg PO Q4H PRN PRN Reason: Pain (Mild 1-3)/fever Hydrocodone Bitart/Acetaminophen ([place] 325-5 Mg) 1 tab PO Q4H PRN PRN Reason: Pain (moderate 4-6) Hydrocodone Bitart/Acetaminophen ([place] 325-5 Mg) 1 tab PO Q4H PRN PRN Reason: Pain (moderate 4-6) Apixaban (Eliquis) 5 mg PO BID [facility] Diatrizoate Meglum/Diatrizoate Sod (Gastrografin 37%) 90 ml PO ONETIME ONE Stop: 02/05/17 16:44 Last Admin: 02/05/17 17:35 Dose: 90 ml Enoxaparin Sodium (Lovenox) 60 mg SUBCUT ONETIME ONE Stop: 02/05/17 19:02 Last Admin: 02/05/17 19:11 Dose: 60 mg Sodium Chloride (Normal Saline) 100 mls @ 65 mls/hr IV ASDIRECTED BRAUL[facility] Last Admin: 02/05/17 17:35 Dose: 65 mls/hr Iopamidol (Isovue-370 (76%)) 100 ml IVPUSH ONETIME ONE Stop: 02/05/17 16:44 Last Admin: 02/05/17 17:35 Dose: 100 ml Magnesium Sulfate (Pharmacy To Dose - Magnesium Replacement) 1 dose .XX ASDIRECTED BRAUL[facility] Non-Formulary Medication (Aspirin [Halfprin]) 81 mg PO DAILY B[facility] Non-Formulary Medication (Calcium Carb & Citrate/Vit D3 [Calcium + D3 Er Tablet] ) 1 tab PO BID B[facility] Non-Formulary Medication (Estradiol) 1 dose VAG ASDIRECTED B[facility] Non-Formulary Medication (Fluticasone Propionate) 1 sprays LEÓN DAILY B[facility] Non-Formulary Medication (Methotrexate [Methotrexate]) 25 mg PO WEEKLY B[facility] Non-Formulary Medication (Metradinadole) 1 applic TOP BID B[facility] Non-Formulary Medication (Multivitamin [Multivitamins]) 1 cap PO DAILY B[facility] Non-Formulary Medication (Pravastatin [Pravachol]) 10 mg PO BEDTIME BRAULIO Potassium Chloride (Pharmacy To Dose - Potassium Replacement) 1 dose .XX ASDIRECTED BRAULIO - Exam General: Reports: Alert, Oriented, Cooperative, No Acute Distress HEENT: Reports: Pupils Equal, Pupils Reactive, EOMI, Mucous Membr. Moist/[place] Neck: Reports: Supple, Trachea Midline, No JVD, No Thyromegaly Lungs: Reports: Clear to Auscultation, Normal Respiratory Effort Cardiovascular: Reports: Regular Rate, Regular Rhythm GI/Abdominal Exam: Normal Bowel Sounds, Soft, Non-Tender, No Organomegaly, No Distention, No Abnormal Bruit, No Mass (Female) Exam: Deferred Rectal (Female) Exam: Deferred Back Exam: Reports: Normal Inspection, Full Range of Motion Extremities: Normal Inspection, Normal Range of Motion, Non-Tender, No Pedal Edema, Normal Capillary Refill Skin: Reports: Warm, Dry, Intact Neurological: Reports: No New Focal Deficit Psy/Mental Status: Reports: Alert, Normal Affect, Normal Mood *Q Meaningful Use (DIS) - VTE *Q VTE Criteria *Q: - Stroke *Q Stroke Criteria *Q: - AMI *Q AMI Criteria *Q:
[2017-02-13] MEDS ORDERED: Apixaban 5 MG Tab PO SCH (09:00)
== END 2017-02-06 12:50 | disposition home or self-care (01) ==
LOC: JD.ED 13:17 → JD.MS 21:34
PROVIDERS: ADMIT Internal Medicine; ATTEND Internal Medicine
DX: I26.99 Other pulmonary embolism without acute cor pulmonale (principal); R07.81 Pleurodynia; I25.2 Old myocardial infarction; M81.0 Age-related osteoporosis without current pathological fracture; M06.9 Rheumatoid arthritis, unspecified; E78.00 Pure hypercholesterolemia, unspecified; J30.2 Other seasonal allergic rhinitis; Z86.010 Personal history of colon polyps; Z79.82 Long term (current) use of aspirin; Z79.51 Long term (current) use of inhaled steroids; Z79.899 Other long term (current) drug therapy; Z88.8 Allergy status to other drugs, medicaments and biological substances; Z98.1 Arthrodesis status
CPT/HCPCS: 36415; 71275; 74177; 80053; 81001; 83690; 85025; 85379; 96372; 99285; A9270; J1170; J1650; J7030; J7050; Q9963; Q9967; 96374; 99284; G0378

== ENCOUNTER 2017-03-01 07:35 | Emergency (ER) | payer MEDICARE, BC ==
--- NOTE | 2017-03-01 10:03 | CR ---
Chest: Two views of the chest were obtained. Comparison: Prior chest CT of 02/05/17 and chest x-ray of 07/29/16. Heart size and mediastinum are normal. Parenchymal density identified within the right lung base most likely representing the pleural-based mass seen on CT exam. Lungs otherwise are clear but hyperinflated. Minimal scoliosis is noted within the spine. Previous lumbar spine surgery is noted. Impression: 1. Slight parenchymal density within the right lung base most likely representing the pleural-based mass noted on recent chest CT exam. Follow-up chest CT recommended as previously described in July,. 2. Nothing acute is otherwise seen with other incidental findings. Diagnostic code #2
--- NOTE | 2017-03-01 10:56 | EDM.PDOC ---
ED HPI GENERAL MEDICAL PROBLEM - General Chief Complaint: Respiratory Problem Stated Complaint: SHARP RIB PAINS Time Seen by Provider: 03/01/17 08:03 Source of Information: Reports: Patient, RN Notes Reviewed - History of Present Illness INITIAL COMMENTS - FREE TEXT/NARRATIVE: 76-year-old lady comes in with mild left lower chest discomfort. This pain is worse with deep breathing. Similar symptoms when diagnosed with PE about its 3- 4 weeks ago. She is on eliquis blood thinner medication and has been taking that as prescribed. She has not been ill with cough congestion fever chills abdominal pain. At this time she does not feel short of breath although she did have some very mild shortness of breath intermittently during the night. She is mainly concerned about recurrent PE. She does not have pain into the left shoulder or arm. - Related Data Allergies Allergy/AdvReac Type Severity Reaction Status Date / Time adhesive Allergy Rash Verified 03/01/17 08:01 cortisone Allergy Rash Verified 03/01/17 08:01 fluconazole [From Diflucan] Allergy Rash Verified 03/01/17 08:01 acetaminophen [From Tylenol] AdvReac Liver Verified 03/01/17 08:01 Problems Home Meds: Home Meds Estradiol [Estrace 0.01% Vaginal Crm] 1 dose VAG ASDIRECTED 04/22/14 [History] Fluticasone Propionate [Flonase] 1 sprays LEÓN DAILY 04/22/14 [History] Methotrexate 25 mg PO WEEKLY 04/22/14 [History] Pravastatin [Pravachol] 10 mg PO BEDTIME 04/22/14 [History] Calcium Carb & Citrate/Vit D3 [Calcium + D3 ER Tablet] 1 tab PO BID 02/05/17 [ History] Metradinadole 1 applic TOP BID 02/05/17 [History] Multivitamin [Multivitamins] 1 cap PO DAILY 02/05/17 [History] Apixaban [Eliquis] 5 mg PO BID #60 tablet 02/06/17 [Rx] Past Medical History HEENT History: Reports: Other (See Below) Other HEENT History: seasonal allergies Cardiovascular History: Reports: High Cholesterol, VA, Syncope Other Cardiovascular History: Ekg showed VA and pt was unaware Respiratory History: Reports: PE, Other (See Below) Other Respiratory History: current admission 02/05/18 for pe Gastrointestinal History: Reports: GERD Genitourinary History: Reports: Pyelonephritis DIAL MAKER History: Reports: Musculoskeletal History: Reports: Back Pain, Chronic, Osteoporosis Dermatologic History: Reports: None - Infectious Disease History Infectious Disease History: Reports: Chicken Pox, Measles, Mumps, Shingles - Past Surgical History HEENT Surgical History: Reports: Adenoidectomy, Tonsillectomy Cardiovascular Surgical History: Reports: None GI Surgical History: Reports: Appendectomy, Cholecystectomy, Colonoscopy Female Surgical History: Reports: Hysterectomy Musculoskeletal Surgical History: Reports: Other (See Below) Other Musculoskeletal Surgeries/Procedures:: L3-4-5 back fusion Dermatological Surgical History: Reports: None Social & Family History - Family History Family Medical History: Noncontributory - Tobacco Use Smoking Status *Q: Never Smoker Second Hand Smoke Exposure: No - Caffeine Use Caffeine Use: Reports: Coffee Other Caffeine Use: 2 cups of coffee every day and occassionally will have a tea - Alcohol Use Days Per Week of Alcohol Use: 2 Number of Drinks Per Day: 2 Total Drinks Per Week: 4 - Recreational Drug Use Recreational Drug Use: No Drug Use in Last 12 Months: No ED ROS GENERAL - Review of Systems Review Of Systems: See Below Constitutional: Denies: Fever, Chills, Diaphoresis HEENT: Denies: Sinus Problem, Throat Pain Respiratory: Reports: Shortness of Breath (mild, earlier today, gone), Pleuritic Chest Pain (mild L lower chest, this past AM, no better). Denies: Wheezing, Cough Cardiovascular: Reports: Chest Pain (mild discomfort L lower chest, worse with breathing, this past AM, now gone) GI/Abdominal: Denies: Abdominal Pain, Diarrhea, Nausea, Vomiting Musculoskeletal: Reports: No Symptoms Skin: Reports: No Symptoms Neurological: Reports: No Symptoms ED EXAM, GENERAL - Physical Exam Exam: See Below General Appearance: Alert, No Apparent Distress Eye Exam: Bilateral Eye: PERRL Throat/Mouth: Normal Inspection, Normal Oropharynx Head: Atraumatic. No: Facial Swelling Neck: Supple, Full Range of Motion. No: Lymphadenopathy (L), Lymphadenopathy (R ) Respiratory/Chest: No Respiratory Distress, Lungs Clear, Normal Breath Sounds, Other (there is chest wall tenderness of the L lower anterior chest, area of stated discomfort) Cardiovascular: Regular Rate, Rhythm GI/Abdominal: Soft, Non-Tender. No: Guarding Back Exam: Normal Inspection Extremities: No: Pedal Edema, Leg Pain Neurological: Alert, Oriented, No Motor/Sensory Deficits Skin Exam: Warm, Dry, Normal Color. No: Erythema Course - Vital Signs Last Recorded V/S: Last Vital Signs Temp 97.6 F 03/01/17 07:55 Pulse 64 03/01/17 11:00 Resp 18 03/01/17 11:00 BP 116/63 03/01/17 11:00 Pulse Ox 98 03/01/17 11:00 - Orders/Labs/Meds Labs: Laboratory Tests 03/01/17 Range/Units 08:50 WBC 5.73 (3.98-10.04) K/mm3 RBC 4.48 (3.98-5.22) M/mm3 Hgb 14.3 (11.2-15.7) gm/L Hct 42.6 (34.1-44.9) % MCV 95.1 H (79.4-94.8) fl MCH 31.9 (25.6-32.2) pg MCHC 33.6 (32.2-35.5) g/dl RDW Std Deviation 47.0 H (36.4-46.3) fL Plt Count 179 L (182-369) K/mm3 MPV 10.5 (9.4-12.3) fl Neut % (Auto) 62.5 (34.0-71.1) % Lymph % (Auto) 21.5 (19.3-51.7) % [place] % (Auto) 13.4 H (4.7-12.5) % Eos % (Auto) 1.7 (0.7-5.8) Baso % (Auto) 0.7 (0.1-1.2) % Neut # (Auto) 3.58 (1.56-6.13) K/mm3 Lymph # (Auto) 1.23 (1.18-3.74) K/mm3 [place] # (Auto) 0.77 H (0.24-0.36) K/mm3 Eos # (Auto) 0.10 (0.04-0.36) K/mm3 Baso # (Auto) 0.04 (0.01-0.08) K/mm3 - Re-Assessments/Exams Free Text/Narrative Re-Assessment/Exam: 03/01/17 10:59 White blood count normal ,chest x-ray relatively normal although there is a slight parenchymal density right lung base previously seen on prior CT 3 weeks ago. See Radiology report for details. She states that when she was discharged from the hospital 3 weeks ago it was recommended she follow-up with heme oncology but did not receive a referral when inquiring about that at the clinic. This is of great concern to her and her . It sounds like she really did not get a full workup regarding risk factors for DVT or PE. Today her sats are normal in the 98% range, she is not tachypnea or tachycardic. I discussed with patient and her that the risk of significant PE on the eliquis blood thinner is slight, based on current sx repeat CT PUL angiogram not clinically or otherwise indicated at this time also considering stress load to kidneys of IV contrast, radiation exposure with study unlikely to change treatment. Pt and her are OK with that. Also with the right pleural based mass I feel that this follow-up becomes even more important and therefore referral provided on discharge documentation to see Dr. Shah, heme oncology [facility] clinic. When Patient tried to self refer they said they did need a written referral. Departure - Departure Time of Disposition: 10:53 Disposition: Home, Self-Care 01 Condition: Fair Clinical Impression: Atypical chest pain - Discharge Information Instructions: Nonspecific Chest Pain Referrals: Cher Ramirez MD [Primary Care Provider] - Forms: ED Department Discharge Additional Instructions: Continue eliquis blood thinner and other medications as previously prescribed, Tylenol 2-3 times daily if needed for discomfort, see Dr. Shah, Heme Oncology [facility] clinic as discussed, next available appointment. This strong recommendation should work as your referral. Follow-up clinic Monday or early next week for recheck, call for appointment, return to ED if symptoms worsening in any way.
[2017-03-01 13:15] VITALS: BP 116/63
== END 2017-03-01 11:10 | disposition home or self-care (01) ==
LOC: JD.ED 07:35
DX: R07.89 Other chest pain (principal); I10 Essential (primary) hypertension; K21.9 Gastro-esophageal reflux disease without esophagitis; Z98.890 Other specified postprocedural states; Z91.09 Other allergy status, other than to drugs and biological substances; Z79.899 Other long term (current) drug therapy
CPT/HCPCS: 36415; 71046; 71046-26; 85025; 99283; 99284

== ENCOUNTER 2018-04-16 08:57 | Emergency (ER) | payer MEDICARE, BC ==
--- NOTE | 2018-04-16 10:11 | CR ---
Chest: Portable view of the chest was obtained. Comparison: Previous chest x-ray of 03/01/17. Heart size and mediastinum are within normal limits. No acute parenchymal change is seen. Bony structures are grossly intact. Prior lumbar spine surgery is noted. Previous cholecystectomy is noted. Impression: 1. Incidental findings. Nothing acute is seen. Diagnostic code #2
--- NOTE | 2018-04-16 10:29 | EDM.PDOC ---
ED HPI GENERAL MEDICAL PROBLEM - General Chief Complaint: Chest Pain Stated Complaint: POSSIBLE BLOOD CLOT IN LUNG Time Seen by Provider: 04/16/18 09:28 Source of Information: Reports: Patient, RN Notes Reviewed - History of Present Illness INITIAL COMMENTS - FREE TEXT/NARRATIVE: 77-year-old patient had onset of right-sided chest discomfort very early this morning, around 2 AM, about 7 hours ago. Lasted for about a half hour and then did go away. Then when she did get up this morning she started feeling the discomfort again. Now it is mostly gone. Described it as an ache. She has not been short of breath. The pain is not worse with deep breathing. Is not been coughing and has not had sore throat fever or chills. No radiation of the discomfort to either shoulder or arm. No radiation of the pain to her back. She does have history of PE about 2 years ago so is very concerned whenever she does start having any type of discomfort of this nature. Right Chest Pain Score (Numeric/FACES): 5 - Related Data Allergies Allergy/AdvReac Type Severity Reaction Status Date / Time adhesive Allergy Rash Verified 04/16/18 09:17 cortisone Allergy Rash Verified 04/16/18 09:17 fluconazole [From Diflucan] Allergy Rash Verified 04/16/18 09:17 acetaminophen [From Tylenol] AdvReac Liver Verified 04/16/18 09:17 Problems Home Meds: Home Meds Estradiol [Estrace 0.01% Vaginal Crm] 1 dose VAG ASDIRECTED 04/22/14 [History] Fluticasone Propionate [Flonase] 1 sprays LEÓN DAILY PRN 04/22/14 [History] Methotrexate 20 mg PO WEEKLY 04/22/14 [History] Pravastatin [Pravachol] 10 mg PO BEDTIME 04/22/14 [History] Calcium Carb & Citrate/Vit D3 [Calcium + D3 ER Tablet] 1 tab PO BID 02/05/17 [ History] Metradinadole 1 applic TOP BID 02/05/17 [History] Multivitamin [Multivitamins] 1 cap PO DAILY 02/05/17 [History] Apixaban [Eliquis] 5 mg PO BID #60 tablet 02/06/17 [Rx] Aspirin [Halfprin] 81 mg PO DAILY 04/16/18 [History] Fish Oil/Luke-3 Fatty Acids [Fish Oil 1,000 MG] 1,000 mg PO DAILY 04/16/18 [ History] Past Medical History HEENT History: Reports: Other (See Below) Other HEENT History: seasonal allergies Cardiovascular History: Reports: High Cholesterol, NC, Syncope Other Cardiovascular History: Ekg showed NC and pt was unaware Respiratory History: Reports: PE, Other (See Below) Other Respiratory History: current admission 02/05/18 for pe Gastrointestinal History: Reports: GERD Genitourinary History: Reports: Pyelonephritis 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: Musculoskeletal History: Reports: Back Pain, Chronic, Osteoporosis Dermatologic History: Reports: None - Infectious Disease History Infectious Disease History: Reports: Chicken Pox, Measles, Mumps, Shingles - Past Surgical History HEENT Surgical History: Reports: Adenoidectomy, Tonsillectomy Cardiovascular Surgical History: Reports: None GI Surgical History: Reports: Appendectomy, Cholecystectomy, Colonoscopy Female Surgical History: Reports: Hysterectomy Musculoskeletal Surgical History: Reports: Other (See Below) Other Musculoskeletal Surgeries/Procedures:: L3-4-5 back fusion Dermatological Surgical History: Reports: None Social & Family History - Family History Family Medical History: Noncontributory - Tobacco Use Smoking Status *Q: Never Smoker Second Hand Smoke Exposure: No - Caffeine Use Caffeine Use: Reports: Coffee, Tea Other Caffeine Use: 2 cups of coffee every day and occassionally will have a tea - Alcohol Use Days Per Week of Alcohol Use: 1 Number of Drinks Per Day: 1 Total Drinks Per Week: 1 - Recreational Drug Use Recreational Drug Use: No ED ROS GENERAL - Review of Systems Review Of Systems: See Below Constitutional: Denies: Fever, Chills, Diaphoresis HEENT: Denies: Throat Pain Respiratory: Denies: Shortness of Breath, Pleuritic Chest Pain, Cough Cardiovascular: Reports: Chest Pain GI/Abdominal: Denies: Abdominal Pain, Nausea, Vomiting Musculoskeletal: Denies: Back Pain Skin: Reports: No Symptoms Neurological: Reports: No Symptoms ED EXAM, GENERAL - Physical Exam Exam: See Below General Appearance: Alert, No Apparent Distress Eye Exam: Bilateral Eye: PERRL Throat/Mouth: Normal Inspection Head: Atraumatic. No: Facial Swelling Neck: Supple, Full Range of Motion Respiratory/Chest: No Respiratory Distress, Lungs Clear, Normal Breath Sounds, Other (Very mild tenderness right anterior chest just below the breast area) Cardiovascular: Regular Rate, Rhythm GI/Abdominal: Soft, Non-Tender Back Exam: No: CVA Tenderness (L), CVA Tenderness (R) Extremities: Normal Inspection. No: Pedal Edema, Increased Warmth, Redness Neurological: Alert, Oriented, No Motor/Sensory Deficits Skin Exam: Warm, Dry, Normal Color Course - Vital Signs Last Recorded V/S: Last Vital Signs Temp 98.0 F 04/16/18 11:30 Pulse 58 L 04/16/18 11:30 Resp 16 04/16/18 11:30 BP 108/50 L 04/16/18 11:30 Pulse Ox 99 04/16/18 11:30 - Orders/Labs/Meds Orders: Active Orders 24 hr Category Date Time Status EKG 12 Lead [EKG Documentation Completion] [] STAT Care 04/16/18 09:40 Active EKG 12 Lead [EKG Documentation Completion] [] URGENT Care 04/16/18 09:15 Inactive Labs: Laboratory Tests 04/16/18 04/16/18 04/16/18 Range/Units 09:15 09:15 09:15 WBC 4.10 (3.98-10.04) K/mm3 RBC 4.78 (3.98-5.22) M/mm3 Hgb 14.9 (11.2-15.7) gm/L Hct 45.1 H (34.1-44.9) % MCV 94.4 (79.4-94.8) fl MCH 31.2 (25.6-32.2) pg MCHC 33.0 (32.2-35.5) g/dl RDW Std Deviation 45.0 (36.4-46.3) fL Plt Count 227 (182-369) K/mm3 MPV 10.7 (9.4-12.3) fl Neut % (Auto) 47.1 (34.0-71.1) % Lymph % (Auto) 41.2 (19.3-51.7) % Campbell % (Auto) 8.3 (4.7-12.5) % Eos % (Auto) 2.2 (0.7-5.8) Baso % (Auto) 1.0 (0.1-1.2) % Neut # (Auto) 1.93 (1.56-6.13) K/mm3 Lymph # (Auto) 1.69 (1.18-3.74) K/mm3 Campbell # (Auto) 0.34 (0.24-0.36) K/mm3 Eos # (Auto) 0.09 (0.04-0.36) K/mm3 Baso # (Auto) 0.04 (0.01-0.08) K/mm3 D-Dimer, Quantitative 0.63 H (0.19-0.50) mg/L Sodium 139 (136-145) mEq/L Potassium 3.8 (3.5-5.1) mEq/L Chloride 102 (98-107) mEq/L Carbon Dioxide 30 (21-32) mEq/L Anion Gap 10.8 (5-15) BUN 14 (7-18) mg/dL Creatinine 0.8 (0.55-1.02) mg/dL Est Cr Clr Drug Dosing 59.17 mL/min Estimated GFR (MDRD) > 60 (>60) mL/min BUN/Creatinine Ratio 17.5 (14-18) Glucose 126 H (83-115) mg/dL Calcium 8.6 (8.5-10.1) mg/dL Total Bilirubin 1.3 H (0.2-1.0) mg/dL AST 24 (15-37) U/L ALT 29 (14-59) U/L Alkaline Phosphatase 69 (46-116) U/L Total Protein 6.8 (6.4-8.2) g/dl Albumin 3.2 L (3.4-5.0) g/dl Globulin 3.6 gm/dL Albumin/Globulin Ratio 0.9 L (1-2) - Re-Assessments/Exams Free Text/Narrative Re-Assessment/Exam: 04/16/18 14:26 D-dimer did come back at 0.63, within the realm of normal with her age of 77, O2 sats been running 98 100%. She is not showing tachypnea or respiratory distress. Chest x-ray looked good, other labs came back relatively normal Departure - Departure Time of Disposition: 11:24 Disposition: Home, Self-Care 01 Condition: Fair Clinical Impression: Chest wall pain, Atypical chest pain Instructions: Chest Wall Pain, [id number] Referrals: Cher Ramirez MD [Primary Care Provider] - Forms: ED Department Discharge Additional Instructions: Rest, no heavy lifting, alternate ice and heat to area of discomfort as needed, Aleve one tablet twice daily for pain and inflammation ill after this is completely resolved, plan to follow-up with Dr. Ramirez in about one week for recheck, call for appointment. return to ED in the meantime if symptoms worsening in any way as discussed. - My Orders Last 24 Hours: My Active Orders 04/16/18 09:15 EKG 12 Lead [EKG Documentation Completion] [RC] URGENT 04/16/18 09:40 EKG 12 Lead [EKG Documentation Completion] [RC] STAT - Assessment/Plan Last 24 Hours: My Active Orders 04/16/18 09:15 EKG 12 Lead [EKG Documentation Completion] [RC] URGENT 04/16/18 09:40 EKG 12 Lead [EKG Documentation Completion] [RC] STAT
[2018-04-16 11:41] VITALS: BP 108/50
== END 2018-04-16 11:35 | disposition home or self-care (01) ==
LOC: JD.ED 08:57
DX: R07.89 Other chest pain (principal); I25.2 Old myocardial infarction; Z79.82 Long term (current) use of aspirin; Z79.899 Other long term (current) drug therapy; Z98.890 Other specified postprocedural states; Z90.49 Acquired absence of other specified parts of digestive tract; Z90.710 Acquired absence of both cervix and uterus; Z98.1 Arthrodesis status; Z91.09 Other allergy status, other than to drugs and biological substances; Z88.8 Allergy status to other drugs, medicaments and biological substances; Z86.711 Personal history of pulmonary embolism
CPT/HCPCS: 36415; 71045; 71045-26; 80053; 85025; 85379; 93005; 93010; 99284; 99285-25

== ENCOUNTER 2020-12-29 12:59 | Emergency (ER) | payer MEDICARE, BC ==
[2020-12-29 13:23] VITALS: BP 131/64; PULSE 68
[2020-12-29] MEDS ORDERED: Iopamidol 612 MG/ML 100 ML Bottle IVPUSH ONE (15:36)
[2020-12-29] MEDS ORDERED: Sodium Chloride 0.9% 10 ML Syringe FLUSH PRN (15:36)
[2020-12-29] MEDS ORDERED: Iopamidol 755 Mg/ML 100 ML Bottle IVPUSH ONE (16:50)
--- NOTE | 2020-12-29 17:45 | CT ---
CT neck Technique: Multiple axial sections through the neck were obtained in both arterial and venous phases. Reconstructed coronal and sagittal images were obtained. Comparison: No prior cervical spine imaging is available. Findings: Common carotid arteries are opacified. There is mild atherosclerotic calcified plaque noted within both carotid bulbs. No focal carotid stenosis is seen. Internal carotid arteries are patent into the intracerebral arteries. Proximal external carotid arteries are also patent. There is also opacification of both vertebral arteries. Left vertebral artery is dominant over the right vertebral artery. Both vertebral arteries supply the basilar artery. Delayed images show contrast within the jugular system. Left jugular vein is normal in size. Right jugular vein consists of several vessels within the neck which are a normal variant. Parotid salivary glands and submandibular salivary glands are normal. No adenopathy is seen within the neck. Thyroid gland appears normal. Visualized upper lungs are clear. Bone window settings were reviewed which show scattered disc space narrowing within the spine. No neck mass is identified. Impression: 1. On the venous imaging there is a normal jugular vein on the left side. Right jugular vein consists of several veins which is a normal variant. 2. Mild atherosclerotic calcification is seen within the carotid siphon. No focal carotid stenosis is seen. 3. Scattered degenerative change within the cervical spine is seen. 4. Nothing acute is appreciated on CT study of the neck. Diagnostic code #2
--- NOTE | 2020-12-29 18:46 | EDM.PDOC ---
ED HPI GENERAL MEDICAL PROBLEM - General Chief Complaint: Neck Problem Stated Complaint: NECK PAIN\SWOLLEN SENT BY [facility] Time Seen by Provider: 12/29/20 15:00 Source of Information: Reports: Patient, RN Notes Reviewed History Limitations: Reports: No Limitations - History of Present Illness INITIAL COMMENTS - FREE TEXT/NARRATIVE: Patient is a 80-year-old female presenting to the emergency department with concerns of an area to her left lateral neck which is tender and she feels slightly swollen. She was getting ready to go to the dentist today when she noticed the area. She does have a history of blood clots. Denies any left ear pain or dental pain. She has had no fever or chills. Left Neck Pain Score (Numeric/FACES): 8 - Related Data Allergies Allergy/AdvReac Type Severity Reaction Status Date / Time adhesive Allergy Rash Verified 08/25/18 00:06 cortisone Allergy Rash Verified 08/25/18 00:06 fluconazole [From Diflucan] Allergy Rash Verified 08/25/18 00:06 acetaminophen [From Tylenol] AdvReac Liver Verified 08/25/18 00:06 Problems Home Meds: Home Meds Fluticasone Propionate [Flonase] 1 sprays LEÓN DAILY PRN 04/22/14 [History] Methotrexate 20 mg PO WEEKLY 04/22/14 [History] Pravastatin [Pravachol] 10 mg PO BEDTIME 04/22/14 [History] estradioL [Estrace 0.01% Vaginal Crm] 1 dose VAG ASDIRECTED 04/22/14 [History] Calcium Carb, Citrate/Vit D3 [Calcium + D3 ER Tablet] 1 tab PO BID 02/05/17 [History] Metradinadole 1 applic TOP BID 02/05/17 [History] Multivitamin [Multivitamins] 1 cap PO DAILY 02/05/17 [History] Aspirin [Halfprin] 81 mg PO DAILY 04/16/18 [History] Fish Oil/[place]-3 Fatty Acids [Fish Oil 1,000 MG] 1,000 mg PO DAILY 04/16/18 [History] Folic Acid 0.8 mg PO DAILY 08/25/18 [History] Orphenadrine [Norflex] 1 tab PO Q12H PRN #14 tab.er 08/25/18 [Rx] Amoxicillin/Clavulanate K [Augmentin 875-125 MG] 1 tab PO BID 14 Days #7 tablet 12/29/20 [Rx] Past Medical History HEENT History: Reports: Allergic Rhinitis Other HEENT History: seasonal allergies Cardiovascular History: Reports: High Cholesterol Other Cardiovascular History: Ekg showed RI and pt was unaware Respiratory History: Reports: PE Other Respiratory History: current admission 02/05/18 for pe Gastrointestinal History: Reports: GERD Genitourinary History: Reports: Urinary Incontinence 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: Musculoskeletal History: Reports: Osteoporosis, RA Neurological History: Reports: None Psychiatric History: Reports: None Endocrine/Metabolic History: Reports: None Hematologic History: Reports: None Immunologic History: Reports: Other (See Below) Oncologic (Cancer) History: Reports: None Dermatologic History: Reports: None - Infectious Disease History Infectious Disease History: Reports: Chicken Pox, Measles, Mumps, Shingles - Past Surgical History HEENT Surgical History: Reports: Adenoidectomy, Oral Surgery, Tonsillectomy Cardiovascular Surgical History: Reports: None GI Surgical History: Reports: Appendectomy, Cholecystectomy, Colonoscopy Female Surgical History: Reports: D&C, Hysterectomy, Tubal Ligation Neurological Surgical History: Reports: Lumbar Spine Musculoskeletal Surgical History: Reports: Other (See Below) Other Musculoskeletal Surgeries/Procedures:: L3-4-5 back fusion. Cysts removed from bilateral feet. Dermatological Surgical History: Reports: None Social & Family History - Family History Family Medical History: No Pertinent Family History - Tobacco Use Tobacco Use Status *Q: Never Tobacco User - Caffeine Use Caffeine Use: Reports: Coffee Other Caffeine Use: 2 cups of coffee every day and occassionally will have a tea - Recreational Drug Use Recreational Drug Use: No - Living Situation & Occupation Living situation: Reports: , with Spouse Occupation: Retired ED ROS GENERAL - Review of Systems Review Of Systems: Comprehensive ROS is negative, except as noted in HPI. ED EXAM, UPPER BACK/NECK PAIN - Physical Exam Exam: See Below Exam Limited By: No Limitations General Appearance: Alert, WD/WN, No Apparent Distress Neck Exam: Other (Area of tenderness palpable to the left lateral neck below the ear. Area may be mildly swollen but is fairly comparable to the right side. No palpable thrill or bruit is auscultated. No palpable mass..) Cardiovascular/Respiratory: Regular Rate, Rhythm, No M/R/G, Normal Peripheral Pulses, No JVD, Normal Breath Sounds, No Respiratory Distress GI/Abdominal: Normal Bowel Sounds, Soft, Non-Tender, No Organomegaly, No Diste ntion, No Abnormal Bruit, No Mass Neurologic: polish maker II-XII nml As Tested, No Motor/Sensory Deficits, Alert, Normal Mood/Affect, Oriented x 3 Psychiatric: Normal Affect, Normal Mood Skin Exam: Normal Color, Warm/Dry Lymphatic: No Adenopathy Course - Vital Signs Last Recorded V/S: Last Vital Signs Temp 98.4 F 12/29/20 13:20 Pulse 68 12/29/20 13:20 Resp 20 12/29/20 13:20 BP 131/64 12/29/20 13:20 Pulse Ox 96 12/29/20 13:20 - Orders/Labs/Meds Orders: Active Orders 24 hr Category Date Time Status Sodium Chloride 0.9% [Saline Flush] Med 12/29/20 15:36 Active 10 ml FLUSH ONETIME PRN Medication Orders Sodium Chloride (Sodium Chloride 0.9% 10 Ml Syringe) 10 ml FLUSH ONETIME PRN PRN Reason: IV FLUSH Last Admin: 12/29/20 17:08 Dose: 10 ml Documented by: [id number] Labs: Laboratory Tests 12/29/20 12/29/20 12/29/20 Range/Units 15:34 15:34 15:34 WBC 7.27 (3.98-10.04) K/mm3 RBC 4.46 (3.98-5.22) M/mm3 Hgb 14.1 (11.2-15.7) gm/dl Hct 42.6 (34.1-44.9) % MCV 95.5 H D (79.4-94.8) fl MCH 31.6 (25.6-32.2) pg MCHC 33.1 (32.2-35.5) g/dl RDW Std Deviation 48.6 H (36.4-46.3) fL Plt Count 234 (182-369) K/mm3 MPV 9.6 (9.4-12.3) fl Neut % (Auto) 73.3 H (34.0-71.1) % Lymph % (Auto) 17.5 L (19.3-51.7) % [place] % (Auto) 8.1 (4.7-12.5) % Eos % (Auto) 0.7 (0.7-5.8) Baso % (Auto) 0.3 (0.1-1.2) % Neut # (Auto) 5.33 (1.56-6.13) K/mm3 Lymph # (Auto) 1.27 (1.18-3.74) K/mm3 [place] # (Auto) 0.59 H (0.24-0.36) K/mm3 Eos # (Auto) 0.05 (0.04-0.36) K/mm3 Baso # (Auto) 0.02 (0.01-0.08) K/mm3 D-Dimer, Quantitative 1.03 H (0.19-0.50) mg/L Sodium 137 (136-145) mEq/L Potassium 3.8 (3.5-5.1) mEq/L Chloride 103 (98-107) mEq/L Carbon Dioxide 29 (21-32) mEq/L Anion Gap 8.8 (5-15) BUN 16 (7-18) mg/dL Creatinine 0.6 (0.55-1.02) mg/dL Est Cr Clr Drug Dosing 74.70 mL/min Estimated GFR (MDRD) > 60 (>60) mL/min BUN/Creatinine Ratio 26.7 H (14-18) Glucose 92 (70-99) mg/dL Calcium 8.7 (8.5-10.1) mg/dL Total Bilirubin 0.9 (0.2-1.0) mg/dL AST 18 (15-37) U/L ALT 25 (14-59) U/L Alkaline Phosphatase 53 (46-116) U/L C-Reactive Protein <0.2 (<1.0) mg/dL Total Protein 7.0 (6.4-8.2) g/dl Albumin 3.3 L (3.4-5.0) g/dl Globulin 3.7 gm/dL Albumin/Globulin Ratio 0.9 L (1-2) Meds: Medications Generic Name Dose Route Start Last Admin Trade Name Freq PRN Reason Stop Dose Admin Sodium Chloride 10 ml 12/29/20 15:36 12/29/20 17:08 Sodium Chloride 0.9% 10 Ml Syringe FLUSH 10 ml ONETIME PRN Administration IV FLUSH Discontinued Medications Generic Name Dose Route Start Last Admin Trade Name Freq PRN Reason Stop Dose Admin Iopamidol 100 ml 11/09/21 15:36 Iopamidol 612 Mg/Ml 100 Ml Bottle IVPUSH 12/29/20 15:37 ONETIME ONE Iopamidol 100 ml 12/29/20 16:50 12/29/20 17:08 Iopamidol 755 Mg/Ml 100 Ml Bottle IVPUSH 12/29/20 16:51 100 ml ONETIME ONE Administration - Re-Assessments/Exams Free Text/Narrative Re-Assessment/Exam: Patient is a 80-year-old female presenting to the emergency department with complaints of tenderness to her left neck. On exam, tenderness is located on the left lateral neck axilla 2 inches below the left ear. There may be mild swelling in the area but nothing significant. There is no palpable thrill or audible bruit. No palpable mass. I will complete CT angiogram of the neck to ensure there is no evidence of blood clot. I will also complete blood work including D-dimer. 12/29/20 18:48 Hematology significant for D-dimer elevated at 1.01. Otherwise unremarkable.CT angio the neck impression as follows 1. On the venous imaging there is normal jugular vein on the left side. Right jugular vein consists of several veins which is a normal variant. 2. Mild atherosclerotic calcification is seen within the carotid siphon. No focal carotid stenosis is seen. Scattered degenerative change within the cervical spine is seen. 4. Nothing acute appreciated on study of neck. Results discussed with patient. She has had no chest pain or shortness of breath. Denies any pain or redness, or warmth to her lower extremities. Given the area of tenderness, I will start her on antibiotics of Augmentin to cover for any hospital ENT infection. Recommend that she contact her primary care provider tomorrow to follow-up on today's visit. She is in agreement with this plan. Discharge instructions as documented. Departure - Departure Time of Disposition: 18:50 Disposition: Home, Self-Care 01 Condition: Good Clinical Impression: Neck pain - Discharge Information *PRESCRIPTION DRUG MONITORING PROGRAM REVIEWED*: No *COPY OF PRESCRIPTION DRUG MONITORING REPORT IN PATIENT DESTINEE: No Prescriptions: Amoxicillin/Clavulanate K [Augmentin 875-125 MG] 1 tab PO BID 14 Days #7 tablet Referrals: Cher Ramirez MD [Primary Care Provider] - Forms: ED Department Discharge Additional Instructions: Take the Augmentin as prescribed. Contact primary care provider tomorrow to follow-up. You experience any new or worsening symptoms of concern, please do not hesitate to return to the ER for reevaluation. Sepsis Event Note (ED) - Focused Exam Vital Signs: Vital Signs Temp Pulse Resp BP Pulse Ox 12/29/20 13:20 98.4 F 68 20 131/64 96 - My Orders Last 24 Hours: My Active Orders 12/29/20 15:36 Sodium Chloride 0.9% [Saline Flush] 10 ml FLUSH ONETIME PRN - Assessment/Plan Last 24 Hours: My Active Orders 12/29/20 15:36 Sodium Chloride 0.9% [Saline Flush] 10 ml FLUSH ONETIME PRN
== END 2020-12-29 19:05 | disposition home or self-care (01) ==
LOC: JD.ED 12:59
DX: M54.2 Cervicalgia (principal); E78.00 Pure hypercholesterolemia, unspecified; K21.9 Gastro-esophageal reflux disease without esophagitis; Z88.8 Allergy status to other drugs, medicaments and biological substances; Z88.5 Allergy status to narcotic agent; Z79.899 Other long term (current) drug therapy
CPT/HCPCS: 36415; 70498; 80053; 85025; 85379; 86140; 99284; Q9967

== ENCOUNTER 2022-12-25 01:14 | Inpatient (IN) | payer MEDICARE, BC ==
[2022-12-25 01:26] LABS: BASOPHILS ABSOLUTE AUTO 0.1 K/mm3 (0.0-0.2); EOSINOPHILS ABSOLUTE AUTO 0.2 K/mm3 (0.0-0.4); EOSINOPHILS PERCENT AUTO 2.1 % (0.0-6.0); HEMATOCRIT 39.8 % (37.0-47.0); HEMOGLOBIN 13.9 gm/dl (12.0-16.0); IMMATURE GRAN ABSOLUTE AUTO 0.02 K/mm3 (0.00-0.05); IMMATURE GRAN PERCENT AUTO 0.2 % (0.0-0.4); LYMPHOCYTES ABSOLUTE AUTO 1.8 K/mm3 (1.0-4.8); LYMPHOCYTES PERCENT AUTO 21.4 % (24.0-44.0); MEAN CORPUSCULAR HEMOGLOBIN 32.6 pg (28.0-32.0); MEAN CORPUSCULAR HGB CONC 34.9 g/dl (32.0-36.0); MEAN CORPUSCULAR VOLUME 93.4 fl (83.0-99.0); MEAN PLATELET VOLUME 9.7 fl (9.4-12.3); MONOCYTES PERCENT AUTO 12.1 % (0.0-8.0); NEUTROPHILS ABSOLUTE AUTO 5.3 K/mm3 (1.8-7.7); NEUTROPHILS PERCENT AUTO 63.2 % (41.0-71.0); PLATELET COUNT,PLT 168 K/mm3 (150-400); RED BLOOD CELL COUNT 4.26 M/mm3 (4.10-5.30); WHITE BLOOD CELL COUNT,WBC 8.29 K/mm3 (3.9-11.3)
[2022-12-25 01:34] LABS: APPEARANCE,URINE CLEAR (Clear); BILIRUBIN,URINE NEGATIVE (Negative); COLOR,URINE LIGHT YELLOW (Yellow); GLUCOSE,URINE NEGATIVE (Negative); KETONES,URINE NEGATIVE (Negative); LEUKOCYTE ESTERASE,URINE NEGATIVE (Negative); NITRITE,URINE NEGATIVE (Negative); OCCULT BLOOD,URINE TRACE-INTACT (Negative); PROTEIN,URINE NEGATIVE (Negative); UROBILINOGEN,URINE 0.2 (0.2-1.0)
[2022-12-25 01:42] LABS: RBC,URINE 0-5 /hpf (0-5); SQUAMOUS EPITHELIAL CELLS,UR NOT SEEN /hpf (0-5); WBC,URINE 0-5 /hpf (0-5)
[2022-12-25 01:43] LABS: BACTERIA,URINE RARE /hpf (FEW); MUCUS,URINE NOT SEEN /hpf (FEW)
[2022-12-25 01:48] LABS: A/G RATIO 0.9 (1-2); ALBUMIN 3.2 g/dl (3.4-5.0); ANION GAP 11.6 (5-15); BILIRUBIN TOTAL 0.8 mg/dL (0.2-1.0); BUN/CREATININE RATIO 21.4 (14-18); CALCIUM 8.8 mg/dL (8.5-10.1); CREATININE 0.7 mg/dL (0.55-1.02); EST CRCL DRUG DOSING (CG) 62.42 mL/min; MAGNESIUM 1.7 mg/dL (1.8-2.4); POTASSIUM,K 4.6 mEq/L (3.5-5.1); PROTEIN TOTAL,TP 6.8 g/dl (6.4-8.2)
[2022-12-25] MEDS ORDERED: Magnesium Oxide 400 MG Tab PO ONE (01:57)
[2022-12-25] MEDS ORDERED: Sodium Chloride 0.9% 1,000 ML IV SCH (02:00)
[2022-12-25] MEDS ORDERED: Iopamidol 755 Mg/ML 100 ML Bottle IVPUSH ONE (02:08)
[2022-12-25] MEDS ORDERED: Sodium Chloride 0.9% 10 ML SDV FLUSH ONE (02:08)
[2022-12-25] MEDS ORDERED: Sodium Chloride 0.9% 100 ML IV SCH (02:15)
[2022-12-25] MEDS ORDERED: Heparin Sodium 5,000 Units/ML Vial IVPUSH ONE ×2 (03:00)
[2022-12-25] MEDS ORDERED: Heparin Sodium/D5W 25,000 UNITS/500 ML BAG IV SCH (03:00)
[2022-12-25] MEDS ORDERED: Ondansetron 4 MG/2 ML SDV IVPUSH PRN (03:08)
[2022-12-25] MEDS ORDERED: traMADol 50 MG Tab PO PRN (03:11)
[2022-12-25 05:35] LABS: HEMATOCRIT 39.4 % (37.0-47.0); HEMOGLOBIN 13.5 gm/dl (12.0-16.0); MEAN CORPUSCULAR HGB CONC 34.3 g/dl (32.0-36.0); MEAN CORPUSCULAR VOLUME 93.4 fl (83.0-99.0); MEAN PLATELET VOLUME 10.4 fl (9.4-12.3); PLATELET COUNT,PLT 162 K/mm3 (150-400); RED BLOOD CELL COUNT 4.22 M/mm3 (4.10-5.30); WHITE BLOOD CELL COUNT,WBC 6.41 K/mm3 (3.9-11.3)
[2022-12-25] MEDS ORDERED: ESTRADIOL VAG SCH (06:15)
[2022-12-25] MEDS: Aspirin 81 MG Tab.EC PO SCH (08:06)
[2022-12-25] MEDS ORDERED: [UNRECOGNIZED DRUG - OTHER] TOP SCH (09:00)
[2022-12-25] MEDS: Apixaban 5 MG Tab PO SCH ×2 (10:58→20:27)
[2022-12-25] MEDS: Sertraline 50 MG Tab PO SCH (15:19)
[2022-12-25] MEDS: Pravastatin 20 MG Tab PO SCH (20:26)
[2022-12-26 05:35] LABS: HEMATOCRIT 41.7 % (37.0-47.0); HEMOGLOBIN 14.3 gm/dl (12.0-16.0); MEAN CORPUSCULAR HGB CONC 34.3 g/dl (32.0-36.0); MEAN CORPUSCULAR VOLUME 93.3 fl (83.0-99.0); MEAN PLATELET VOLUME 10.3 fl (9.4-12.3); PLATELET COUNT,PLT 180 K/mm3 (150-400); RED BLOOD CELL COUNT 4.47 M/mm3 (4.10-5.30); WHITE BLOOD CELL COUNT,WBC 7.78 K/mm3 (3.9-11.3)
[2022-12-26] MEDS ORDERED: Methotrexate 2.5 MG Tab PO SCH ×2 (08:00→12:00)
[2022-12-26] MEDS: Sertraline 50 MG Tab PO SCH (08:50)
[2022-12-26] MEDS: Apixaban 5 MG Tab PO SCH ×2 (08:50→20:32)
[2022-12-26] MEDS: Aspirin 81 MG Tab.EC PO SCH (08:50)
[2022-12-26] MEDS: Folic Acid 1 MG Tab PO SCH (09:42)
[2022-12-26] MEDS ORDERED: Apixaban 5 MG Tab PO ONE (10:00)
[2022-12-26] MEDS: Pravastatin 20 MG Tab PO SCH (20:32)
[2022-12-27 08:55] VITALS: BP 107/55; PULSE 70
[2022-12-27] MEDS: Sertraline 50 MG Tab PO SCH (08:55)
[2022-12-27] MEDS: Apixaban 5 MG Tab PO SCH (08:56)
[2022-12-27] MEDS: Folic Acid 1 MG Tab PO SCH (08:56)
[2022-12-27] MEDS ORDERED: Sertraline 50 MG Tab PO SCH (09:00)
== END 2022-12-27 09:48 | disposition home or self-care (01) | DRG 176 ==
LOC: JD.ED 01:14 → JD.MS 04:04
PROVIDERS: ADMIT Internal Medicine; ATTEND Internal Medicine
DX: I26.99 Other pulmonary embolism without acute cor pulmonale (principal); E86.0 Dehydration; I26.93 Single subsegmental thrombotic pulmonary embolism without acute cor pulmonale; E78.00 Pure hypercholesterolemia, unspecified; M06.9 Rheumatoid arthritis, unspecified; D68.51 Activated protein C resistance; K21.9 Gastro-esophageal reflux disease without esophagitis; M05.79 Rheumatoid arthritis with rheumatoid factor of multiple sites without organ or systems involvement; M81.0 Age-related osteoporosis without current pathological fracture; E78.5 Hyperlipidemia, unspecified; F41.9 Anxiety disorder, unspecified; Z86.711 Personal history of pulmonary embolism; Z79.01 Long term (current) use of anticoagulants; Z90.49 Acquired absence of other specified parts of digestive tract; Z98.1 Arthrodesis status; Z86.16 Personal history of COVID-19; Z90.89 Acquired absence of other organs; Z98.890 Other specified postprocedural states; Z88.8 Allergy status to other drugs, medicaments and biological substances; Z90.710 Acquired absence of both cervix and uterus; Z98.51 Tubal ligation status; Z79.82 Long term (current) use of aspirin; Z79.899 Other long term (current) drug therapy
CPT/HCPCS: 36415; 71046; 71275; 80053; 81001; 83735; 85025; 85379; 85730; A9270; J1644 ×2; J3490; J7030; Q9967; 82272; 85027; 99285; J8610

== ENCOUNTER 2024-05-07 12:38 | Emergency (ER) | payer BC, MEDICARE ==
[2024-05-07 13:30] LABS: BASOPHILS ABSOLUTE AUTO 0.1 K/mm3 (0.0-0.2); BASOPHILS PERCENT AUTO 0.6 % (0.0-1.0); EOSINOPHILS PERCENT AUTO 0.3 % (0.0-6.0); HEMOGLOBIN 14.8 gm/dl (12.0-16.0); IMMATURE GRAN ABSOLUTE AUTO 0.12 K/mm3 (0.00-0.05); IMMATURE GRAN PERCENT AUTO 1.5 % (0.0-0.4); LYMPHOCYTES ABSOLUTE AUTO 1.5 K/mm3 (1.0-4.8); LYMPHOCYTES PERCENT AUTO 18.7 % (24.0-44.0); MEAN CORPUSCULAR HEMOGLOBIN 31.9 pg (28.0-32.0); MEAN CORPUSCULAR HGB CONC 33.6 g/dl (32.0-36.0); MEAN CORPUSCULAR VOLUME 94.8 fl (83.0-99.0); MEAN PLATELET VOLUME 10.6 fl (9.4-12.3); MONOCYTES ABSOLUTE AUTO 0.6 K/mm3 (0.0-0.8); MONOCYTES PERCENT AUTO 7.4 % (0.0-8.0); NEUTROPHILS ABSOLUTE AUTO 5.7 K/mm3 (1.8-7.7); NEUTROPHILS PERCENT AUTO 71.5 % (41.0-71.0); PLATELET COUNT,PLT 187 K/mm3 (150-400); RED BLOOD CELL COUNT 4.64 M/mm3 (4.10-5.30); WHITE BLOOD CELL COUNT,WBC 7.92 K/mm3 (3.9-11.3)
[2024-05-07 13:54] LABS: A/G RATIO 0.9 (1-2); ALBUMIN 3.3 g/dl (3.4-5.0); ANION GAP 8.7 (5-15); BILIRUBIN TOTAL 1.2 mg/dL (0.2-1.0); BUN/CREATININE RATIO 16.7 (14-18); CREATININE 0.9 mg/dL (0.55-1.02); EST CRCL DRUG DOSING (CG) 46.55 mL/min; POTASSIUM,K 5.7 mEq/L (3.5-5.1); PROTEIN TOTAL,TP 6.8 g/dl (6.4-8.2)
[2024-05-07 15:27] VITALS: BP 104/58; PULSE 64
== END 2024-05-07 14:20 | disposition home or self-care (01) ==
LOC: JD.ED 12:38
DX: M54.6 Pain in thoracic spine (principal); D68.51 Activated protein C resistance; Z86.711 Personal history of pulmonary embolism; E78.00 Pure hypercholesterolemia, unspecified; K21.9 Gastro-esophageal reflux disease without esophagitis; Z90.49 Acquired absence of other specified parts of digestive tract; Z79.01 Long term (current) use of anticoagulants; Z79.899 Other long term (current) drug therapy; Z91.048 Other nonmedicinal substance allergy status; Z88.6 Allergy status to analgesic agent; Z88.8 Allergy status to other drugs, medicaments and biological substances
CPT/HCPCS: 36415; 71046; 71046-26; 80053; 84132; 85025; 85379; 99283; 99284